=== PATIENT | female | born 1930 | race Caucasian/White ===

== ENCOUNTER 2017-12-16 18:52 | Inpatient (IN) | payer OTHER ==
[~2017-12-16] VITALS: Ht 167.6 cm; Wt 57.6 kg
[~2017-12-16 18:52] MED LIST: AMLO10TA PO; ASPI81EC98 PO; BENA1TAB23 PO; CHOL400T PO; LEVA0.6318 INH; PHO667 PO; PRAV40TA1 PO; VITE200 PO; [UNRECOGNIZED DRUG - CODE] OP; [UNRECOGNIZED DRUG - CODE] OP; [UNRECOGNIZED DRUG - CODE] PO
[2017-12-16 18:54] VITALS: BP 193/95
[2017-12-16] MEDS ORDERED: ATRMDI INH (19:02)
[2017-12-16] MEDS ORDERED: ZOLP5TAB1 PO (19:02)
[2017-12-16] MEDS ORDERED: ALBUTEROL SULFATE/IPRATROPIU 3 ML SOL IH ONE (19:30)
[2017-12-16] MEDS ORDERED: NACL 0.9% 1,000 ML IV ONE (19:35)
[2017-12-16] MEDS ORDERED: methylPREDNISolone SS 125 MG/2 ML VIAL IVP ONE (19:35)
[2017-12-16] MEDS ORDERED: MAG SULF 2000 MG/WATER PREMIX 50 ML IV ONE (19:35)
--- NOTE | 2017-12-16 20:00 | NUR ---
Pt came to ED via EMS for SOB and hypertension. Pt is A&Ox4. Pt denies cough or difficulty breathing. Respirations are normal with not adventitious breath sounds in all lobes. Pt states difficulty getting air unto her lungs but respiratory rate and effort are within normal limits. Pt in bed in poc with HOB elevated. ER MD aware. Continue to monitor.
[2017-12-16 20:15] LABS: BASOPHILS # (AUTO) 0.1 K/uL (0.00-0.22); BASOPHILS % (AUTO) 1.6 % (0.0-2.0); EOSINOPHILS % (AUTO) 0.6 % (0.0-4.0); HEMOGLOBIN 12.9 g/dL (12.0-16.0); LYMPHOCYTES # (AUTO) 1.3 K/uL (2.5-16.5); LYMPHOCYTES % (AUTO) 17.1 % (20.5-51.1); MEAN CORPUSCULAR HEMOGLOBIN 29 pg (27-31); MEAN CORPUSCULAR HGB CONC 34 g/dL (33-37); MEAN CORPUSCULAR VOLUME 87 fL (80-94); MONOCYTES # (AUTO) 0.6 K/uL (0.8-1.0); MONOCYTES % (AUTO) 7.7 % (1.7-9.3); NEUTROPHILS # (AUTO) 5.8 K/uL (1.8-7.7); PLATELET COUNT (AUTO) 245 K/uL (140-450); RED CELL DISTRIBUTION WIDTH 12.6 % (11.6-13.7); WHITE BLOOD COUNT (AUTO) 7.8 K/uL (4.8-10.8)
[2017-12-16] MEDS ORDERED: PIPERACILLIN/TAZOBACTAM 3.375 GM in DEXTROSE 5% 50 ML IV ONE (20:25)
[2017-12-16] MEDS ORDERED: PIPERACILLIN/TAZOBACTAM 3.375 GM VIAL IV ONE (20:28)
[2017-12-16 20:39] LABS: ANION GAP 12.9 (8-16); CARBON DIOXIDE 27.9 mmol/L (21-32); CHLORIDE 92 mmol/L (98-107); CREATININE 0.5 mg/dL (0.6-1.3); GLUCOSE 87 mg/dL (74-106); POTASSIUM 3.8 mmol/L (3.5-5.1); SODIUM SERUM 129 mmol/L (136-145); UREA NITROGEN, BLOOD 8 mg/dL (7-18)
[2017-12-16 20:43] LABS: ALBUMIN 3.5 g/dL (3.4-5.0); ASPARTATE AMINOTRANSFERASE 24 U/L (15-37); TOTAL BILIRUBIN 0.4 mg/dL (0.0-1.0)
[2017-12-16] MEDS ORDERED: LOSARTAN 50 MG TAB PO SCH (22:15)
[2017-12-16] MEDS ORDERED: amLODIPine 5 MG TAB PO SCH (22:15)
[2017-12-16 22:46] LABS: PROTHROMBIN TIME 9.4 secs (10.8-13.4)
--- NOTE | 2017-12-16 23:05 | NUR ---
Pt taken to floor room 124B from ED via mike with Abdoulaye RN and Jonelle EMT at 2305. Pt on monitor. VSS
[2017-12-16 23:10] VITALS: BP 179/85
--- NOTE | 2017-12-16 23:10 | NUR ---
RECEIVED PT FROM THE ER, PT IN STABLE CONDITION. BEDSIDE REPORT GIVEN BY ER NURSE LIBAN. PT IS AAOX4, ON 3L O2 VIA NC. PT HAS IV TO R FA 20 G AND L FA 20G, BOTH PATENT AND INTACT, SALINE LOCK. SKIN INTACT, RESPIRATIONS EVEN AND UNLABORED. DIMINISHED BREATH SOUNDS BILATERALLY. SKIN IS WARM AND DRY TO TOUCH, COLOR WNL. RE NURSE LIBAN REPORTS THAT PTS LAST BP WAS 214/91 AND NOTHING WAS GIVEN IN ER. WILL RECHECK BP AND NOTIFY DR. VEGA. INITIAL ASSESSMENT COMPLETED, PLAN OF CARE DISCUSSED WITH PT AT THE BEDSIDE, ALL SAFETY PRECAUTIONS MET, CALL LIGHT WITHIN REACH, BOARD UPDATED. WILL CONTINUE TO MONITOR
--- NOTE | 2017-12-16 23:11 | NUR ---
Report given to Ronald WAN at 2311 and care transfered. Pt VSS and ambulatory upon transfer.
--- NOTE | 2017-12-16 23:43 | NUR ---
NORVASC AND LOSARTAN ADMINISTERED PER ORDERS FOR HIGH BP
--- NOTE | 2017-12-16 23:50 | NUR ---
CLARIFIED WITH DR. WOO IF HE WANTS TO ORDER FLUIDS, HE DOES NOT WANT FLUIDS AND TO KEEP SALINE LOCK FOR NOW
[2017-12-17] VITALS: BP 165/79
--- NOTE | 2017-12-17 | NUR ---
SPOKE TO DR. LOCK IN REGARDS TO DIET, FLUIDS, HOME MEDS, ECHO, EKG, AND CURRENT B/P. DR. LOCK STATED THAT SHE WILL BE ON A REGULAR DIET, NO FLUIDS SALINE LOCK, HE WILL DISCUSS HOME MEDS WITH PT TOMORROW WHEN HE COMES, HE WANTS ECHO ORDERED AND EKG ORDERED Q8. NO OTHER MEDICATION TO BE ORDERED AT THIS TIME PER DR. LOCK. STATED BP WHICH IS 179/77 PULSE 85, STATED I GAVE BP MEDICATIONS THAT WERE ORDERED FOR TONIGHT, HE STATED HE DOES NOT WANT ANY OTHER BP MEDS ORDERED AT THIS TIME
[2017-12-17 04:00] VITALS: BP 187/81
--- NOTE | 2017-12-17 04:27 | NUR ---
REPORTED PTS B/P OF TO DR. WOO. HE ASKED IF PT COMPLAINED OF ANY PAIN AND PT DENIES ANY PAIN AT THIS TIME. HE SAID IT IS OKAY AND NO NEW ORDERS NEED TO BE PUT IN PLACE. HE WILL BE IN TO SEE PT
[2017-12-17 04:50] LABS: CREATINE KINASE MB 2.9 ng/mL (0-3.6)
[2017-12-17 06:21] LABS: BASOPHILS % (AUTO) 0.8 % (0.0-2.0); EOSINOPHILS % (AUTO) 0.9 % (0.0-4.0); HEMATOCRIT 36.7 % (36-48); HEMOGLOBIN 12.3 g/dL (12.0-16.0); LYMPHOCYTES # (AUTO) 0.4 K/uL (2.5-16.5); LYMPHOCYTES % (AUTO) 6.5 % (20.5-51.1); MEAN CORPUSCULAR HEMOGLOBIN 29 pg (27-31); MEAN CORPUSCULAR HGB CONC 34 g/dL (33-37); MEAN CORPUSCULAR VOLUME 86 fL (80-94); MONOCYTES % (AUTO) 0.6 % (1.7-9.3); NEUTROPHILS % (AUTO) 91.2 % (42.2-75.2); PLATELET COUNT (AUTO) 220 K/uL (140-450); RED BLOOD CELL COUNT(AUTO) 4.27 MIL/uL (4.20-5.40); RED CELL DISTRIBUTION WIDTH 12.5 % (11.6-13.7); WHITE BLOOD COUNT (AUTO) 5.4 K/uL (4.8-10.8)
--- NOTE | 2017-12-17 07:03 | NUR ---
SHOWED PTS HOME MEDICATIONS TO DR. WOO, MEDICATIONS PUT IN YELLOW BIN WITH PT LABEL
--- NOTE | 2017-12-17 07:09 | NUR ---
DR. WOO IN TO SEE PT
[2017-12-17] MEDS ORDERED: IPRATROPIUM HFA MDI 17 MCG/ACTUATION 12.9 GM INH SCH (07:15)
--- NOTE | 2017-12-17 07:15 | NUR ---
REPORT GIVEN TO DAY NURSE FOR CONTINUITY OF CARE, PT IN STABLE CONDITION. NO S/S OF DISTRESS NOTED. BILATERAL IV PATENT AND INTACT
[2017-12-17] MEDS ORDERED: ALBUTEROL SULFATE/IPRATROPIU 3 ML SOL IH PRN (07:30)
--- NOTE | 2017-12-17 07:30 | NUR ---
RECEIVED PT AAOX4. NO SOB NOTED, ON 02 AT 2LPM VIA NC WITH 93% O2 SATS. WITH IV ON RT AND LT HAND PATENT AND INTACT. CHEST CLEAR. ABDOMEN SOFT, BOWEL SOUNDS PRESENT. NO EDEMA NOTED. INSTRUCTED PT TO CALL FOR ASSISTANCE, CALL LIGHT WITHIN REACH. PT VERBALIZED UNDERSTANDING.
[2017-12-17 08:00] VITALS: BP 161/87
[2017-12-17] MEDS ORDERED: BENAZEPRIL PO SCH (09:00)
[2017-12-17] MEDS ORDERED: [UNRECOGNIZED DRUG - OTHER] PO SCH (09:00)
[2017-12-17] MEDS ORDERED: NON-FORMULARY ITEM (Pravastatin Sodium* (Pravachol*) 40 MG) PO SCH (09:00)
[2017-12-17] MEDS ORDERED: HYDROCHLOROTHIAZIDE PO SCH (09:00)
[2017-12-17] MEDS: amLODIPine 5 MG TAB PO SCH ×2 (09:44→20:48)
[2017-12-17] MEDS: BENAZEPRIL 20 MG TAB PO SCH (09:45)
[2017-12-17] MEDS: ECOTRIN 81 MG TABEC PO SCH (09:45)
[2017-12-17] MEDS: HYDROCHLOROTHIAZIDE 25 MG TAB PO SCH (09:46)
--- NOTE | 2017-12-17 09:51 | NUR ---
PATIENT HAS BEEN SCREENED AND CATEGORIZED MODERATE NUTRITION RISK. PATIENT WILL BE SEEN WITHIN 3-5 DAYS OF ADMISSION. 12/18/17-12/20/[address]
--- NOTE | 2017-12-17 11:43 | NUR ---
SPOKE WITH ERAN FROM [facility] [employer] [facility]. SHE SAID THEY ARE AT FULL RISK AND TO SEND TO REVIEW TO HER. FAXED INITIAL REVIEW TO [facility] [phone] PHONE ERAN [phone].
[2017-12-17 12:00] VITALS: BP 143/76
--- NOTE | 2017-12-17 13:00 | NUR ---
NATALIAODE PLACED AT THE BEDSIDE. PT VERBALIZED UNDERSTANDING.
[2017-12-17 15:07] LABS: CREATINE KINASE MB 3.3 ng/mL (0-3.6)
[2017-12-17 16:00] VITALS: BP 156/85
--- NOTE | 2017-12-17 16:55 | NUR ---
PT AWAKE, WATCHING TV. NO SOB NOTED. NO C/O PAIN AT THIS TIME.
--- NOTE | 2017-12-17 19:00 | NUR ---
PT RESTING. NO SOB NOTED. NO COMPLAINTS MADE. WILL ENDORSE TO NEXT SHIFT NURSE FOR CONTINUITY OF CARE.
--- NOTE | 2017-12-17 19:30 | NUR ---
RECEIVED PT FROM DAY NURSE PT IN STABLE CONDITION. PT IS AAOX4, ON 3L O2 VIA NC. PT HAS IV TO R FA 20 G AND L FA 20G, BOTH PATENT AND INTACT, SALINE LOCK. SKIN INTACT, RESPIRATIONS EVEN AND UNLABORED. DIMINISHED BREATH SOUNDS BILATERALLY. SKIN IS WARM AND DRY TO TOUCH, COLOR WNL. RE NURSE LIBAN REPORTS THAT PTS LAST BP WAS 214/91 AND NOTHING WAS GIVEN IN ER. WILL RECHECK BP AND NOTIFY DR. VEGA. INITIAL ASSESSMENT COMPLETED, PLAN OF CARE DISCUSSED WITH PT AT THE BEDSIDE, ALL SAFETY PRECAUTIONS MET, CALL LIGHT WITHIN REACH, BOARD UPDATED. WILL CONTINUE TO MONITOR
[2017-12-17 20:00] VITALS: BP 137/72
[2017-12-17] MEDS ORDERED: ZOLPIDEM 5 MG TAB PO PRN (21:00)
[2017-12-17] MEDS ORDERED: SIMVASTATIN 20 MG TAB PO SCH (21:00)
[2017-12-17] MEDS ORDERED: CARVEDILOL 3.125 MG TAB PO SCH (21:00)
[2017-12-18] VITALS: BP 155/84
[2017-12-18 04:00] VITALS: BP 156/85
--- NOTE | 2017-12-18 07:27 | NUR ---
REPORT GIVEN TO DAY NURSE FOR CONTINUITY OF CARE, PT IN STABLE CONDITION. NO S/S OF DISTRESS. IV PATENT AND INTACT, NO REDNESS OR SWELLING
--- NOTE | 2017-12-18 07:30 | NUR ---
RECEIVED PT AAOX4. NO SOB NOTED, NO C/O PAIN AT THIS TIME. WITH IV ON RT AND LT HAND PATENT AND INTACT. CHEST CLEAR. ABDOMEN SOFT, BOWEL SOUNDS PRESENT. NO EDEMA NOTED. INSTRUCTED PT TO CALL FOR ASSISTANCE, CALL LIGHT WITHIN REACH. PT VERBALIZED UNDERSTANDING.
[2017-12-18 08:00] VITALS: BP 168/71
--- NOTE | 2017-12-18 09:05 | NUR ---
CALLED DR. MCGEE'S OFFICE NUMBER AND SPOKE WITH HIS GALLERY MANAGER, MESSAGE LEFT REGARDING PT'S D/C ORDERS BY DR. WOO. CELL BIOLOGY SCIENTIST TOLD ME DR. MCGEE IS WITH A PT AND WILL RETURN MY CALL SOON HIS IS AVAILABLE. AWAITING FOR CALL BACK.
[2017-12-18] MEDS: HYDROCHLOROTHIAZIDE 25 MG TAB PO SCH (09:22)
[2017-12-18] MEDS: BENAZEPRIL 20 MG TAB PO SCH (09:22)
[2017-12-18] MEDS: amLODIPine 5 MG TAB PO SCH (09:22)
[2017-12-18] MEDS: ECOTRIN 81 MG TABEC PO SCH (09:23)
[2017-12-18 10:15] VITALS: BP 153/55
[2017-12-18] MEDS ORDERED: AMLO10TA PO (10:33)
--- NOTE | 2017-12-18 11:00 | NUR ---
DISCHARGE INSTRUCTIONS GIVEN TO PT WHICH VERBALIZED FULL UNDERSTANDING OF THE INSTRUCTIONS GIVEN AND THE NEED TO FOLLOW UP WITH DR. RUBEN WOO WITHIN 7 DAYS. PT IS AWARE THAT DR. WOO ALREADY SENT HIS PRESCRIPTIONS TO PT'S PREFERRED PHARMACY AND IS READY FOR DOVETAILER. ARM BANDS AND IV REMOVED, CANNULA TIP INTACT.
--- NOTE | 2017-12-18 11:20 | NUR ---
PT WHEELED TO THE PARKING LOT IN STABLE CONDITION. NO SOB NOTED. NO C/O PAIN AT THIS TIME. PT IS D/C HOME WITH .
--- NOTE | 2017-12-18 12:36 | NUR ---
CALLED ERAN FROM [employer] [facility] AND GAVE ORAL [id number]. INFORMED HER PATIENT IS DISCHARGED TODAY. FAXED DISCHARGE SUMMARY AND MEDICATION REC. LIST TO HER AT [phone] PHONE [phone]
== END 2017-12-18 11:20 | disposition home or self-care (01) | DRG 305 ==
LOC: MED 18:52 → MTU 22:26
PROVIDERS: ADMIT Family Medicine; ATTEND Family Medicine
DX: I16.0 Hypertensive urgency (principal); E87.1 Hypo-osmolality and hyponatremia; J44.9 Chronic obstructive pulmonary disease, unspecified; I10 Essential (primary) hypertension; I08.0 Rheumatic disorders of both mitral and aortic valves; I49.1 Atrial premature depolarization; Z87.891 Personal history of nicotine dependence
CPT/HCPCS: 36415; 71045; 80053; 82550; 82553; 83605; 83880; 84484; 85025; 85610; 85730; 87040; 87081; 93005; 94640; 96365; 96368; 96375; 99285; J2543; J2930; J3475; J7030; J7620; Q0092

== ENCOUNTER 2018-06-03 18:56 | Inpatient (IN) | payer OTHER ==
[~2018-06-03] VITALS: Ht 152.4 cm; Wt 49.0 kg
[~2018-06-03 18:56] MED LIST changes: +ATRMDI INH; -CHOL400T PO; -LEVA0.6318 INH; -PHO667 PO; -VITE200 PO; +ZOLP5TAB1 PO; -[UNRECOGNIZED DRUG - CODE] OP; -[UNRECOGNIZED DRUG - CODE] OP; -[UNRECOGNIZED DRUG - CODE] PO
[2018-06-03 19:00] VITALS: BP 178/90
--- NOTE | 2018-06-03 19:05 | NUR ---
TO BED # 4 VIA [facility]
--- NOTE | 2018-06-03 19:22 | NUR ---
Dr. Martini evaluating patient at bedside.
--- NOTE | 2018-06-03 19:23 | NUR ---
87/F BIBA FOR ALOC. PER EMS, PT ELOPED FROM HOSPITAL TODAY, PD WAS CALLED FOR MISSING PERSON, PT CALLED 911 FOR HER AT HOME, PD WAS ON SCENE AND FOUND PT THE MISSING PERSON. PER PT'S NEIGHBOR, PT IS NOT IN HER BASELINE LOC, PT WAS SEEN "WALKING AROUND IN THE SUN BY HERSELF." PT'S NEIGHBOR AT BEDSIDE. PT AOX3-4, CONFUSED AND FORGETFUL AT TIMES. PT AGITATED AND NOT COMPLYING WITH MEDICAL TREATMENTS, ATTEMPTING TO GET OFF RESTRAINTS AND THREATENING TO LEAVE. PT COMES IN WITH BEHAVIORAL RESTRAINTS PLACED BY EMS, PER DR. LAMBERT, BEHAVIORAL RESTRAINTS TO BE CONTINUED. SKIN INTACT, +CMS. HX HTN. LUNG SOUNDS CLEAR BL. ER MD AT BEDSIDE TO EVALUATE PT.
[2018-06-03] MEDS ORDERED: NACL 0.9% 1,000 ML IV ONE (19:30)
[2018-06-03] MEDS ORDERED: HALOPERIDOL IM 5 MG/ML VIAL ONE (19:30)
[2018-06-03] MEDS ORDERED: HALOPERIDOL IM 5 MG/ML VIAL IM ONE (19:30)
--- NOTE | 2018-06-03 20:19 | NUR ---
PT RETURN FROM CT
--- NOTE | 2018-06-03 20:30 | NUR ---
PT REMOVED FROM BEHAVIORAL RESTRAINTS, PT APPEARS CAPABLE CONTROLLING BEHAVIOR, PT COOPERATIVE AT THIS TIME. SKIN INTACT, +CMS. PT PROVIDED WITH SANDWICH AND SNACKS. ALL NEEDS MET AT THIS TIME.
[2018-06-03] MEDS ORDERED: LORazepam 0.5 MG TAB PO ONE (20:35)
--- NOTE | 2018-06-03 20:44 | NUR ---
PT AGREED TO HAVE STRAIGHT CATH, SAMPLE COLLECTED AND PLACED ON COLLECTION BOX
[2018-06-03 20:47] LABS: WHITE BLOOD COUNT (AUTO) 6.7 K/uL (4.8-10.8)
[2018-06-03 20:48] LABS: BASOPHILS % (AUTO) 1.7 % (0.0-2.0); EOSINOPHILS % (AUTO) 0.1 % (0.0-4.0); HEMOGLOBIN 12.8 g/dL (12.0-16.0); LYMPHOCYTES # (AUTO) 0.6 K/uL (2.5-16.5); MEAN CORPUSCULAR HEMOGLOBIN 28 pg (27-31); MEAN CORPUSCULAR HGB CONC 33 g/dL (33-37); MEAN CORPUSCULAR VOLUME 85.6 fL (80-94); MONOCYTES % (AUTO) 5.6 % (1.7-9.3); NEUTROPHILS # (AUTO) 5.6 K/uL (1.8-7.7); NEUTROPHILS % (AUTO) 83.6 % (42.2-75.2); PLATELET COUNT (AUTO) 257 K/uL (140-450); RED BLOOD CELL COUNT(AUTO) 4.55 MIL/uL (4.20-5.40); RED CELL DISTRIBUTION WIDTH 13.8 % (11.6-13.7)
[2018-06-03 20:49] LABS: BASOPHILS # (AUTO) 0.1 K/uL (0.00-0.22); MONOCYTES # (AUTO) 0.4 K/uL (0.8-1.0)
[2018-06-03 20:52] LABS: PROTHROMBIN TIME 13.4 secs (10.8-13.4)
[2018-06-03 21:12] LABS: POTASSIUM 3.5 mmol/L (3.5-5.1); SODIUM SERUM 129 mmol/L (136-145)
[2018-06-03 21:13] LABS: ANION GAP 17.4 (8-16); ASPARTATE AMINOTRANSFERASE 61 U/L (15-37); CARBON DIOXIDE 22.1 mmol/L (21-32); CHLORIDE 93 mmol/L (98-107); CREATININE 0.7 mg/dL (0.6-1.3); GLUCOSE 90 mg/dL (74-106); TOTAL BILIRUBIN 0.7 mg/dL (0.0-1.0); UREA NITROGEN, BLOOD 13 mg/dL (7-18)
[2018-06-03 21:14] LABS: ACETAMINOPHEN < 0.5 ug/ml (10-30); ALBUMIN 3.8 g/dL (3.4-5.0); SALICYLATE < 2.8 mg/dL (2.8-20.0)
[2018-06-03 21:40] LABS: APPEARANCE,URINE CLEAR (CLEAR); BILIRUBIN,URINE 2+ (NEGATIVE); BLOOD, URINE TRACE-L (NEGATIVE); COLOR,URINE YELLOW (YELLOW); LEUKOCYTE ESTERASE ,URINE NEGATIVE (NEGATIVE); NITRITE, URINE NEGATIVE (NEGATIVE); PH,URINE 5.5 (5.0-9.0); UGLUCOSE NEGATIVE (NEGATIVE)
[2018-06-03 21:43] LABS: BENZODIAZEPINE, URINE NEG. ng/mL (NEG <=200); CANNABINOID, URINE NEG. ng/mL (NEG <=50); COCAINE, URINE NEG. ng/mL (NEG <=300); OPIATE, URINE NEG. ng/mL (NEG <=2000); PHENCYCLIDINE SCREEN,URINE NEG. ng/mL (NEG <=25)
[2018-06-03 21:50] LABS: BARBITURATE, URINE NEG ng/ml (NEG <=200)
[2018-06-03 21:55] LABS: RBC,URINE 0-5 (RARE) /HPF (0-5); WBC,URINE 0-5 (RARE) /HPF (0-5)
--- NOTE | 2018-06-03 22:26 | NUR ---
PT SLEEPING COMFORTABLY IN BED, RR EVEN AND UNLABORED, SPO2 88% ON RA, PT PLACED ON O2 2L NC, RR 16. ALL NEEDS MET AT THIS TIME.
[2018-06-03] MEDS ORDERED: cefTRIAXone 1,000 MG VIAL ONE (22:34)
--- NOTE | 2018-06-03 23:17 | NUR ---
PER MT, DELAY IN ADMITTING PT TO FLOOR AT THIS TIME FOR BED AVAILABILITY
--- NOTE | 2018-06-03 23:48 | NUR ---
PT ARRIVED AT UNIT VIA GURNEY, PT SEDATED, V/S TAKEN, WNL, REPORT RECEIVED FROM ER NURSE JASMEET RN, PT STABLE, IV TO L HAND 20G, PATENT, INTACT, INFUSING WELL, PT ON 2LPM O2 VIA NC, NO SOB NOTED, MRSA SWAB TAKEN, INITIAL ASSESSMENT DONE, ALL SAFETY PRECAUTION MET, WILL CONTINUE TO MONITOR.
--- NOTE | 2018-06-03 23:50 | NUR ---
Patient will be admitted to care of DR. WOO. Admited to TELE. Will go to room 107B. Belongings list completed. Report to SOCO PANG AT BEDSIDE.
[2018-06-04] VITALS: BP 135/58
--- NOTE | 2018-06-04 | NUR ---
PT WOUND NOT ANSWER QUESTIONS, PT IN STABLE CONDITION, SLEEPING, NO DISTRESS NOTED, UNABLE TO ASSESS PT FOR ADMISSION. Addendum: 06/04/18 at 0746 by Carolin Samson RN *WOULD NOT ANSWER
[2018-06-04] MEDS: NACL 0.9% 1,000 ML IV SCH ×2 (01:45→14:15)
--- NOTE | 2018-06-04 01:48 | NUR ---
CALLED DR. WOO REGARDING PT ORDERS, STATED TO ORDER IVF NS @ 80ML/HR, MECHANICAL SOFT DIET, ROCEPHIN 1G IV DAILY, CBC AND BMP FOR MORNING 0500 AM, ATIVAN 0.5MG PO Q6H PRN AGITATION. WILL PUT IN ORDER AND WILL CONTINUE WITH ORDERS.
--- NOTE | 2018-06-04 03:44 | NUR ---
PT SLEEPING, NO DISTRESS NOTED, PT TOOK OF NC, PO2 93%, PT STABLE ON ROOM AIR, NO SOB NOTED, V/S TAKEN, WNL, CALL LIGHT WITHIN REACH, WILL CONTINUE TO MONITOR.
[2018-06-04 04:00] VITALS: BP 127/57
--- NOTE | 2018-06-04 05:10 | NUR ---
PT SLEEPING, NO DISTRESS NOTED, CALL LIGHT WITHIN REACH, WILL CONTINUE TO MONITOR.
--- NOTE | 2018-06-04 06:10 | NUR ---
PT SON ISSA CALLED REGARDING PT CONDITION.
--- NOTE | 2018-06-04 07:30 | NUR ---
ENDORSED PT TO DAY SHIFT NURSE JOSEPH WAN, PT IN STABLE CONDITION, NO DISTRESS NOTED, CALL LIGHT WITHIN REACH.
--- NOTE | 2018-06-04 07:35 | NUR ---
RECEIVED REPORT FROM LABORATORY CUREMAN NURSE, PT IS SLEEPING IN BED AT THIS TIME, PT HAS IV ON HER LEFT HAND, PATENT, INTACT, FLUSHING WELL, SKIN IS INTACT, NO S/S OF RESPIRATORY DISTRESS OR DISCOMFORT NOTED, PT IS AAOX2, AMBULATES WITH ASSIST, DISCUSSED PLAN OF CARE, PT VERBALIZED UNDERSTANDING. Addendum: 06/04/18 at 1829 by Cristina Coulter RN SAFETY/FALL PRECAUTIONS ARE IN PLACE, CALL LIGHT IS WITHIN REACH, WILL CONTINUE TO MONITOR.
[2018-06-04 08:00] VITALS: BP 123/60
[2018-06-04 08:50] LABS: BASOPHILS % (AUTO) 1.6 % (0.0-2.0); EOSINOPHILS % (AUTO) 0.8 % (0.0-4.0); HEMATOCRIT 34.7 % (36-48); HEMOGLOBIN 11.2 g/dL (12.0-16.0); LYMPHOCYTES % (AUTO) 19.9 % (20.5-51.1); MEAN CORPUSCULAR HEMOGLOBIN 28 pg (27-31); MEAN CORPUSCULAR HGB CONC 32 g/dL (33-37); MEAN CORPUSCULAR VOLUME 87.3 fL (80-94); MONOCYTES % (AUTO) 8.2 % (1.7-9.3); NEUTROPHILS % (AUTO) 69.5 % (42.2-75.2); PLATELET COUNT (AUTO) 215 K/uL (140-450); RED BLOOD CELL COUNT(AUTO) 3.98 MIL/uL (4.20-5.40); RED CELL DISTRIBUTION WIDTH 13.9 % (11.6-13.7); WHITE BLOOD COUNT (AUTO) 5.7 K/uL (4.8-10.8)
--- NOTE | 2018-06-04 08:50 | NUR ---
I RECEIVED A PHONE CALL FROM PATIENT'S SON, PATTI. I LET HIM PATIENT WAS SLEEPING AT THIS TIME. PATTI LEFT HIS NUMBER IN CASE WE COULD NOT REACH THE PATIENT'S .
--- NOTE | 2018-06-04 09:00 | NUR ---
ASSISTED PT TO RESTROOM AND BACK INTO BED, ALL NEEDS MET AT THIS TIME, CALL LIGHT WITHIN REACH.
[2018-06-04 09:52] LABS: ANION GAP 14.5 (8-16); CARBON DIOXIDE 23.7 mmol/L (21-32); CHLORIDE 99 mmol/L (98-107); CREATININE 0.5 mg/dL (0.6-1.3); POTASSIUM 3.2 mmol/L (3.5-5.1); SODIUM SERUM 134 mmol/L (136-145); UREA NITROGEN, BLOOD 12 mg/dL (7-18)
--- NOTE | 2018-06-04 10:15 | NUR ---
PT IS IN ROOM RESTLESS, WALKING IN AND OUT OF RESTROOM, REORIENTED PT INTO BED. WILL MEDICATE FOR AGITATION AT THIS TIME.
[2018-06-04 10:18] LABS: GLUCOSE 43 mg/dL (74-106)
[2018-06-04] MEDS: LORazepam 0.5 MG TAB PO PRN (10:28)
--- NOTE | 2018-06-04 10:32 | NUR ---
PATIENT HAS BEEN SCREENED AND CATEGORIZED MODERATE NUTRITION RISK. PATIENT WILL BE SEEN WITHIN 3-5 DAYS OF ADMISSION. 06/06/18 06/08/[address]
--- NOTE | 2018-06-04 11:58 | NUR ---
CALLED [facility] AND SPOKE WITH MICHELINE. HE SAID REVIEWS GO TO [facility], THEY ARE DELEGATED. CALLED [facility] AND SPOKE WITH ERAN [phone]. FAXED INITIAL REVIEW TO [phone]
[2018-06-04 12:00] VITALS: BP 145/59
--- NOTE | 2018-06-04 12:45 | NUR ---
PT SLEEPING IN BED, NO S/S OF RESPIRATORY DISTRESS OR DISCOMFORT NOTED, CALL LIGHT WITHIN REACH.
--- NOTE | 2018-06-04 13:30 | NUR ---
CALLED DR. WOO TO LET HIM KNOW THE RESULTS OF THE AMMONIA LEVEL (38), DR. WOO SAID IT WAS "OK." I ALSO LET HIM KNOW HER K LEVEL WAS 3.2. PER DR. WOO GIVE K DUR PO, 20 MEQ ONCE AND DECREASE HER FLUIDS TO 50ML/HR.
[2018-06-04 13:48] LABS: ALBUMIN 2.9 g/dL (3.4-5.0); BILIRUBIN,DIRECT 0.1 mg/dL (0.0-0.3); TOTAL BILIRUBIN 0.4 mg/dL (0.0-1.0)
[2018-06-04] MEDS ORDERED: POTASSIUM CHLORIDE 10 MEQ TABER PO SCH (15:30)
--- NOTE | 2018-06-04 15:35 | NUR ---
DUE MEDICATION GIVEN, ASSISTED PATIENT TO RESTROOM AND BACK INTO BED. BED ALARM, BED IN LOW POSITION AND CALL LIGHT WITHIN REACH.
[2018-06-04 16:00] VITALS: BP 137/68
--- NOTE | 2018-06-04 17:45 | NUR ---
ASSISTED PATIENT TO RESTROOM AND BACK INTO BED, CALL LIGHT IS WITHIN REACH.
--- NOTE | 2018-06-04 19:15 | NUR ---
ENDORSED PT TO SALES MARKETING MANAGER NURSE FOR CONTINUITY OF CARE. PT STABLE AT THIS TIME.
--- NOTE | 2018-06-04 19:16 | NUR ---
RECEIVED BEDSIDE REPORT FRO DAY SHIFT NURSE JOSEPH RN, PT RESTING, NO DISTRESS NOTED, IV TO L HAND 20G, PT STATED THAT IS PAINFULL, NOTED BLOOD LEAKING FROM IV SITE, WILL PUT IN NEW IV, PT ON ROOM AIR, NO SOB, PT STATED HAVING NO PAIN AT THIS MOMENT, PT CALM AND COOPERATIVE, CALL LIGHT WITHIN REACH, INITIAL ASSESSMENT DONE, ALL SAFETY PRECAUTION MET, WILL CONTINUE TO MONITOR.
[2018-06-04 20:00] VITALS: BP 191/84
--- NOTE | 2018-06-04 20:04 | NUR ---
CHECKED ON PT BP 191/84 HR 81 PO2 92% TEMP 97.1, PT STATED HAVING NO HEADACHE, CALLED DR. WOO REGARDING PT BP, STATED TO ORDER AMLODIPIN 10MG PO QD AND ONE DOSE FOR NOW, ALSO TO HEPLOCK THE PT. PUT IN ORDERS AND WILL FOLLOW UP WITH ORDERS. Addendum: 06/04/18 at 2013 by Carolin Samson RN PT STATED FEELING FINE, NO DISTRESS NOTED, PT SITTING ON BEDSIDE OF BED, CALL LIGHT WITHIN REACH
--- NOTE | 2018-06-04 20:27 | NUR ---
DUE MEDICATION ADMINISTERED, PT TOLERATED WELL, NO DISTRESS NOTED, PT RESTING IN BED, CALL LIGHT WITHIN REACH, WILL CONTINUE TO MONITOR.
[2018-06-04] MEDS ORDERED: amLODIPine 5 MG TAB PO SCH (20:30)
--- NOTE | 2018-06-04 22:30 | NUR ---
RECHECKED PT BP 155/66 HR 78, PT RESTING, NO DISTRESS NOTED, CALL LIGHT WITHIN REACH, WILL CONTINUE TO MONITOR.
--- NOTE | 2018-06-04 23:10 | NUR ---
PT CONFUSED, KEEPS TAKING TELE MONITOR OFF, ORIENT PT IMPORTANCE OF TELE MONITORING, PT STATED UNDERSTANDING, NO DISTRESS NOTED, CALL LIGHT WITHIN REACH, WILL CONTINUE TO MONITOR.
[2018-06-05] VITALS: BP 139/63
--- NOTE | 2018-06-05 01:47 | NUR ---
CHECKED ON PT, PT SLEEPING, NO DISTRESS NOTED, CALL LIGHT WITHIN REACH, WILL CONTINUE TO MONITOR.
--- NOTE | 2018-06-05 03:26 | NUR ---
PT WOKE UP, WENT TO RESTROOM AND BACK TO BED WITH ASSISTANCE, PT TOLERATED WELL, NO DISTRESS NOTED, CALL LIGHT WITHIN REACH, WILL CONTINUE TO MONITOR.
[2018-06-05 04:00] VITALS: BP 145/51
--- NOTE | 2018-06-05 04:51 | NUR ---
PT GOT UP AND WENT TO RESTROOM, AND BACK TO BED, NO DISTRESS NOTED, CALL LIGHT WITHIN REACH, WILL CONTINUE TO MONITOR.
--- NOTE | 2018-06-05 05:43 | NUR ---
SCD NOT APPLIED TO PT, B/C PT WALKS FREQUENTLY TO THE RESTROOM AND DOES NOT WANT TO HAVE SCD ON.
--- NOTE | 2018-06-05 07:30 | NUR ---
ENDORSED PT TO DAY SHIFT NURSE KY RN, PT STABLE, NO DISTRESS NOTED, CALL LIGHT WITHIN REACH
--- NOTE | 2018-06-05 07:32 | NUR ---
RECEIVED BEDSIDE REPORT FROM WELL CONTROL INSTRUCTOR NURSE AT BEDSIDE FOR CONTINUITY OF CARE, PT RESTING, NO DISTRESS NOTED, IV TO L FOREARM 20G, PATENT, ASYMPTOMATIC, AND INTACT, SALINE LOCK, PT ON ROOM AIR, NO SOB, PT STATED HAVING NO PAIN AT THIS MOMENT, PT CALM AND COOPERATIVE, SAFETY PRECAUTION IN PLACE, CALL LIGHT WITHIN REACH, INITIAL ASSESSMENT DONE, WILL CONTINUE TO MONITOR PATIENT.
[2018-06-05 07:50] LABS: ANION GAP 14.3 (8-16); CHLORIDE 98 mmol/L (98-107); CREATININE 0.5 mg/dL (0.6-1.3); GLUCOSE 52 mg/dL (74-106); POTASSIUM 3.3 mmol/L (3.5-5.1); SODIUM SERUM 135 mmol/L (136-145); UREA NITROGEN, BLOOD 5 mg/dL (7-18)
[2018-06-05 08:00] VITALS: BP 161/73
--- NOTE | 2018-06-05 08:05 | NUR ---
NXTM CALLED ABOUT DR. WOO'S ABDOMEN US ORDER. STATED PATIENT ALREADY EATING BREAKFAST. TECH STATED THAT WILL DO THE US HOPEFULLY BY [phone] SO PATIENT CAN EAT LUNCH. PATIENT NOW NPO STATUS FOR THE TIME BEING. INFORMED PATIENT, SHE VERBALIZED UNDERSTANDING. WILL CONTINUE TO MONITOR PATIENT.
--- NOTE | 2018-06-05 08:12 | NUR ---
PATIENT'S SON PATTI CALLED. UPDATED HIM ON PATIENT'S STATUS AND HOW SHE IS DOING TODAY. HE STATES THAT HE IS WORRIED ABOUT HER AND DOES NOT WANT HER TO BE DISCHARGED BECAUSE SHE WANTS TO GIVE AWAY HER MONEY AND HOUSE. RN VERBALIZED UNDERSTANDING. WILL KEEP HIM UPDATED. ALSO TRANSFERRED HIM TO THE ROOM PHONE SO PATIENT COULD SPEAK WITH HIM.
[2018-06-05] MEDS: BENAZEPRIL 10 MG TAB PO SCH (08:37)
[2018-06-05] MEDS: amLODIPine 5 MG TAB PO SCH (08:37)
--- NOTE | 2018-06-05 08:37 | NUR ---
PATIENT SPEAKING TO HER RUBEN. ORDERED MEDICATIONS GIVEN. PATIENT TOLERATED THEM WELL. NO SIGNS OF DISTRESS OR SOB NOTED ON ROOM AIR. PATIENT DENIES PAIN. PATIENT INSISTS ON SPEAKING TO DR WOO AND WANTS TO BE RELEASED, SHE STATES THAT SHE IS FINE AND THAT HER NEEDS HER. SHE ALSO INSISTS THAT HER SON PATTI WILL BE COMING TO PICK HER UP. RN VERBALIZED UNDERSTANDING AND WILL FOLLOW UP.
--- NOTE | 2018-06-05 08:50 | NUR ---
PATIENT'S RUBEN CALLED. UPDATED HIM ON PATIENT'S STATUS AND HOW SHE IS DOING TODAY. HE STATES THAT HE IS WORRIED ABOUT HER AND DOES NOT WANT HER TO BE DISCHARGED BECAUSE SHE WANTS TO GIVE AWAY HER MONEY AND HOUSE. RN VERBALIZED UNDERSTANDING. WILL KEEP HIM UPDATED.
--- NOTE | 2018-06-05 08:52 | NUR ---
[id number] RECEIVED CALL FROM VIANCA NICKERSON APS ENGLISH AS A SECOND LANGUAGE TEACHER [phone]. PER VIANCA PT WAS SEEN IN THE ED BY AN APS ENGLISH AS A SECOND LANGUAGE TEACHER AND VIANCA WILL BE FOLLOWING UP. VIANCA REQUESTS THAT HE BE NOTIFIED OF PT'S DISCHARGE DISPOSITION AND PLANNED DATE FOR DISCHARGE.
--- NOTE | 2018-06-05 11:30 | NUR ---
PATIENT REFUSED TELE MONITOR. CALLED DR. WOO'S OFFICE AT [phone]. HE WAS BUSY SO WILL FOLLOW UP IN 15-20 MINUTES. INFORMED PATIENT OF THIS FACT. SHE HAS CHANGED INTO HER OWN CLOTHING. SHE ALSO KNOWS HOW TO TURN OFF THE BED ALARM. PATIENT REFUSES TO PUT THE HOSPITAL GOWN BACK ON. RN EDUCATED HER ON WHY IT IS NECESSARY BUT PATIENT VERBALIZED UNDERSTANDING BUT REFUSES.
[2018-06-05 12:00] VITALS: BP 148/66
--- NOTE | 2018-06-05 12:05 | NUR ---
CALLED DR. WOO AGAIN. HE VERBALIZED THAT HE SPOKE WITH PATIENT IN THE MORNING AND SHE AGREED TO PLAN OF CARE OF WAITING FOR UA RESULTS, WAITING FOR US OF ABDOMEN RESULTS, AND SPEAKING WITH DR. ORTIZ. NOW PATIENT INSISTS ON GOING HOME BECAUSE "MY IS ILL AND NEEDS ME". RN VERBALIZED UNDERSTANDING BUT REORIENTED PATIENT TO DR. WOO'S PLAN OF CARE, WHICH PATIENT AGREED TO. PATIENT STILL INSISTS ON GOING HOME BUT STATED SHE WILL WAIT UNTIL SHE SPEAKS WITH DR. WOO. RN CAME BACK AND PATIENT STATED THAT SHE DID SPEAK WITH DR. WOO AND HE WANTS HER TO STAY ONE MORE NIGHT. ATIVAN OFFERRED TO PATIENT, PATIENT REFUSED STATING THAT "I DON'T NEED IT, WHAT I NEED TO DO IS GET OUT". WILL CONTINUE TO MONITOR.
--- NOTE | 2018-06-05 12:25 | NUR ---
FAXED CONCURRENT REVIEW TO [facility] [phone] PHONE ERAN [phone]
--- NOTE | 2018-06-05 12:41 | NUR ---
PATIENT ATTEMPTED TO LEAVE ROOM. INFORMED PATIENT OF WHY SHE NEEDED TO STAY. RN DISCOVERED IV DISLODGED, NO LONGER PATENT, SO IV REMOVED, IV CATHETER INTACT, MINIMAL BLOOD NOTED. PATIENT STATED THAT SHE DID NOT WANT THE IV IN AND WILL NOT AGREE TO ANOTHER INSERT. WILL CONTINUE TO MONITOR PATIENT.
--- NOTE | 2018-06-05 13:28 | NUR ---
DR ORTIZ IN TO SEE THE PATIENT. WILL WAIT TO SEE HIS ASSESSMENT.
--- NOTE | 2018-06-05 13:45 | NUR ---
TAVERN OPERATOR IN TO DO US OF OF ABDOMEN. WILL AWAIT FOR RESULTS.
--- NOTE | 2018-06-05 13:55 | NUR ---
DR WOO CALLED. STATED THAT HE JUST SPOKE TO PATIENT'S BILL ABOUT SOMEONE CALLING TO SAY COME PICK PATIENT UP AND HE WAS WORRIED. DR. WOO STATED THAT PATIENT CANNOT GO AMA, IF SHE ATTEMPTS TO DO SO, HAVE THE ER MD COME AND ASSESS HER AND PUT HER ON A 5150 HOLD FOR GRAVELY DISABLED. RN VERBALIZED UNDERSTANDING.
--- NOTE | 2018-06-05 14:05 | NUR ---
PATIENT REFUSING ULTRASOUND. TECH DID NOT FINISH COMPLETE ULTRASOUND OF ABDOMEN. PATIENT REFUSED TO DO IT ANYMORE.
--- NOTE | 2018-06-05 14:07 | NUR ---
INFORMED TAN ROOM SUPERVISOR ALEM ABOUT PATIENT'S REFUSAL AND ADAMANT DEMAND TO BE RELEASED OR ELSE SHE WILL JARRED. PER DR. WOO'S INSTRUCTIONS, DR. RIVERO FROM CALLED TO SEE IF A 5150 HOLD CAN BE PLACED FOR GRAVELY DISABLED. DR. RIVERO IN TO SEE THE PATIENT. WILL WAIT FOR HIS ASSESSMENT. Addendum: 06/05/18 at 1450 by Elvis Burnette RN CALLED PATIENT'S RUBEN AT [phone] PER PATIENT'S WISHES SO WILL KNOW THAT SHE IS COMING HOME VIA TAXI. PER RUBEN'S REQUEST, HE DOES NOT WANT PATIENT HOME, HE WANTS HER OBSERVED BECAUSE THEY WANT TO KNOW WHY PATIENT IS ACTING THE WAY THAT SHE HAS RECENTLY BEEN ACTING. HE STATED "PLEASE HAVE SOMEONE SIT ON HER IF YOU HAVE TO. SHE CANNOT BE HOME AT THIS TIME." RN VERBALIZED UNDERSTANDING AND GAVE PHONE SO PATIENT CAN SPEAK TO . PATIENT FINISHED SPEAKING TO , THEN SAID THAT "I NEED TO GO HOME, MY IS VERY SICK, HE NEEDS ME AT HOME, I CAN'T STAY HERE ANOTHER NIGHT". RN VERBALIZED UNDERSTANDING BUT INFORMED PATIENT THAT THE DOCTOR WANTS HER TO STAY FOR THE URINE RESULTS AND CONSULTATION WITH DR. ORTIZ.
[2018-06-05] MEDS: LORazepam 0.5 MG TAB PO PRN (14:21)
--- NOTE | 2018-06-05 14:21 | NUR ---
PATIENT AGREED TO TAKE ATIVAN PO BUT REFUSES TO TAKE CELEXA ORDERED BY DR. ORTIZ. PATIENT REFUSED THAT AND ALSO REFUSED ABILIFY BEING ORDERED BY DR. RIVERO. RN VERBALIZED UNDERSTANDING BUT STATED WHY THOSE MEDICATIONS WERE NEEDED. PATIENT STATED "I DON'T NEED IT, I JUST NEED OUT!" RN VERBALIZED UNDERSTANDING.
[2018-06-05] MEDS ORDERED: CITALOPRAM 20 MG TAB PO SCH (14:30)
--- NOTE | 2018-06-05 14:45 | NUR ---
DR. RIVERO IN TO SEE THE PATIENT. HE WILL NOT PUT PATIENT ON 5150 HOLD FOR GRAVELY DISABLED AT THE MOMENT. JUST ORDERED ABILIFY 0.5 MG P.O DAILY. WILL FOLLOW HIS ORDER ONCE VERIFIED BY PHARMACY.
--- NOTE | 2018-06-05 15:55 | NUR ---
PATIENT'S RUBEN CALLED. GAVE HIM UPDATED INFORMATION. HE STATES THAT HE IS WORRIED ABOUT HER AND DOES NOT WANT HER TO BE DISCHARGED BECAUSE SHE WANTS TO GIVE AWAY HER MONEY AND HOUSE. RN VERBALIZED UNDERSTANDING. WILL KEEP HIM UPDATED.
[2018-06-05 16:00] VITALS: BP 152/68
--- NOTE | 2018-06-05 16:15 | NUR ---
PATIENT ATTEMPTED TO ELOPED. RN AT HER SIDE. PATIENT WENT OUTSIDE OF HOSPITAL TO EMERGENCY EXIT. SECURITY WAS CALLED. EXPLAINED TO PATIENT WHY SHE NEEDS TO STAY IN THE HOSPITAL UNTIL THE DOCTOR DECIDES TO DISCHARGE HER, SHE WAS AGITATED AND DID NOT AGREE WITH THE DOCTOR'S ORDERS. SECURITY ESCORTED PATIENT BACK INTO ROOM. WILL CONTINUE TO MONITOR PATIENT.
--- NOTE | 2018-06-05 16:23 | NUR ---
PATIENT'S SON PATTI CALLED. UPDATED HIM. HE STATES THAT HE IS WORRIED ABOUT HER AND DOES NOT WANT HER TO BE DISCHARGED, IT IS UNSAFE FOR HER PER HIS OPINION TO BE BACK HOME. RN VERBALIZED UNDERSTANDING. WILL KEEP HIM UPDATED.
--- NOTE | 2018-06-05 17:10 | NUR ---
PATIENT SITTING IN CHAIR IN RN STATION. PATIENT OFFERED ICE CREAM. PATIENT ACCEPTED IT. PATIENT STILL ATTEMPTED TO GO HOME BUT DID AGREE TO STAY AT THE RN STATION FOR THE MOMENT. WILL CONTINUE TO MONITOR PATIENT.
--- NOTE | 2018-06-05 19:30 | NUR ---
RECEIVED PT IN STABLE CONDITION FROM AM NURSE. AWAKE,ALERT AND ORIENTED BUT WITH PERIODS OF CONFUSION. PT REFUSED TO HAVE THE TELE MONITOR. AMBULATORY. WITH NO C/O OF ANY DISCOMFORT NOR PAIN NOTED. WILL CONTINUE TO MONITOR.
--- NOTE | 2018-06-05 19:30 | NUR ---
REPORT GIVEN TO CRIMINAL INVESTIGATOR NURSE AT BEDSIDE FOR CONTINUITY OF CARE. PATIENT IN STABLE CONDITION, STILL AGITATED AND WANTS TO GO HOME TO HER . RN GAVE PATIENT PHONE TO USE.
[2018-06-05 20:00] VITALS: BP 148/77
--- NOTE | 2018-06-05 20:30 | NUR ---
PT STILL REFUSED THE TELE MONITOR . ABLE TO START ANEW IV ACCESS ON THE LT FA322. CLEAR AND PATENT.
[2018-06-05] MEDS ORDERED: DONEPEZIL 10 MG TAB PO SCH (21:00)
--- NOTE | 2018-06-05 22:00 | NUR ---
PT IS ASLEEP. NO S/S OF ANY DISCOMFORT NOTED.
[2018-06-06 00:50] VITALS: BP 148/88
--- NOTE | 2018-06-06 00:50 | NUR ---
AWAKE. ABLE TO GET VITAL SIGNS. NO C/O ANY DISCOMFORT NOR PAIN NOTED.
--- NOTE | 2018-06-06 02:00 | NUR ---
PT IS SLEEPING AT THIS TIME. NO S/S/ OF ANY DISCOMFORT NOTED.
[2018-06-06 04:30] VITALS: BP 135/65
--- NOTE | 2018-06-06 04:42 | NUR ---
PT SAID OK TO START AGAIN THE TELE MONITOR -SR. NO C/O ANY PAIN NOTED.
--- NOTE | 2018-06-06 06:00 | NUR ---
AWAKE. GOT UP TO THE BATHROOM AND VOIDED. PT HAD SOME JUICE AFTER.
[2018-06-06 06:36] LABS: ALBUMIN 3.2 g/dL (3.4-5.0); ANION GAP 10.4 (8-16); ASPARTATE AMINOTRANSFERASE 45 U/L (15-37); CHLORIDE 96 mmol/L (98-107); CREATININE 0.6 mg/dL (0.6-1.3); GLUCOSE 59 mg/dL (74-106); POTASSIUM 3.4 mmol/L (3.5-5.1); SODIUM SERUM 132 mmol/L (136-145); TOTAL BILIRUBIN 0.8 mg/dL (0.0-1.0); UREA NITROGEN, BLOOD 5 mg/dL (7-18)
[2018-06-06 06:54] LABS: PROTHROMBIN TIME 12.3 secs (10.8-13.4)
--- NOTE | 2018-06-06 07:20 | NUR ---
ENDORSED PT IN STABLE CONDITION TO AM NURSE.
--- NOTE | 2018-06-06 07:20 | NUR ---
RECEIVED PT REPORT FROM [employer] TOOLING ENGINEER RN. PT IS AAOX3. ON TELE, DENIES PAIN, IV NOTED TO THE LEFT FA, FLUSHED, ASYMPTOMATIC, SL. FALL RISK PRECAUTIONS IN PLACE, BED ALARM ON, CALL LIGHT WITHIN REACH, WILL CONTINUE TO MONITOR.
[2018-06-06 07:32] LABS: HEMOGLOBIN 12.6 g/dL (12.0-16.0); RED BLOOD CELL COUNT(AUTO) 4.36 MIL/uL (4.20-5.40); WHITE BLOOD COUNT (AUTO) 6.9 K/uL (4.8-10.8)
[2018-06-06 07:33] LABS: MEAN CORPUSCULAR HEMOGLOBIN 29 pg (27-31); MEAN CORPUSCULAR HGB CONC 33 g/dL (33-37); MEAN CORPUSCULAR VOLUME 87.1 fL (80-94); PLATELET COUNT (AUTO) 227 K/uL (140-450); RED CELL DISTRIBUTION WIDTH 13.9 % (11.6-13.7)
[2018-06-06 07:34] LABS: LYMPHOCYTES % (AUTO) 21.5 % (20.5-51.1); MONOCYTES % (AUTO) 9.7 % (1.7-9.3); NEUTROPHILS % (AUTO) 65.4 % (42.2-75.2)
[2018-06-06 07:35] LABS: BASOPHILS % (AUTO) 2.3 % (0.0-2.0); EOSINOPHILS % (AUTO) 1.1 % (0.0-4.0)
[2018-06-06 08:00] VITALS: BP 166/73
--- NOTE | 2018-06-06 08:00 | NUR ---
PT IS EATING BREAKFAST, HAD COFFEE AND FRUITS, ORDERED WHITE TOAST PER PT'S REQUEST. NO S/S OF ACUTE DISTRESS.
--- NOTE | 2018-06-06 08:18 | NUR ---
DUE TO RECEIVING A FNS CONSULT, PATIENT HAS BEEN CATEGORIZED HIGH RISK. PATIENT WILL BE SEEN WITHIN 1-2 DAYS OF TODAY 06/06/18-06/07/[address]
[2018-06-06] MEDS: BENAZEPRIL 10 MG TAB PO SCH (08:48)
[2018-06-06] MEDS: amLODIPine 5 MG TAB PO SCH (08:49)
[2018-06-06] MEDS ORDERED: CITALOPRAM 20 MG TAB PO SCH (09:00)
[2018-06-06] MEDS ORDERED: ARIPiprazole 10 MG TAB PO SCH (09:00)
--- NOTE | 2018-06-06 11:00 | NUR ---
Telecommunications Technician Notes: Patient's husbands contacted me to discuss Patient's Plan of care and possible discharge today. Per Patient's Mr. Pearson patient has been under his care and recently she has been getting sick at home and its been difficult to care for her due to Mr. Pearson having his own health issues and having OCPD. I discuss with Mr. Pearson about family support and he stated that they have 10 children however; none of his sons and daughters are able to assist them and are living out of state. He included that patient has no advance directives and that he is patient's health care decision maker. Mr. Pearson stated that patient has no issues getting her medications and she has no special equipment at home. Patient's stated that he will want assistance with her care. I informed Mr. Pearson that patient may be on need of antibiotics and may need SNF care. He agreed and stated that he will want assistance with her care with SNF for at least until she is medically stable. I informed him that telehealth case manager is working with and coordinating with Insurance for that MD Yayo Lerma recommendations. Mr. Pearson was pleased to hear that and stated that if patient do not meet criteria for SNF care his plan is to take patient back home with him and care for patient himself. Mr. Pearson stated that he will continue communicating with me for updates. He thanked me for my assistance and ended the call.
[2018-06-06 12:00] VITALS: BP 116/47
--- NOTE | 2018-06-06 12:00 | NUR ---
ENCOURAGED PT TO EAT MORE. PT REFUSED TO THE PLAN FOR CORRECTION AND WANTS TO GO HOME. LEFT A MESSAGE OF [facility] CLERK'S PHONE.
--- NOTE | 2018-06-06 13:05 | NUR ---
Clinical review faxed to [facility] [phone]-
--- NOTE | 2018-06-06 13:25 | NUR ---
Spoke to [facility] director of casework, will arrange SNF placement and will call back. Skilled for Rocephin 1 gm IV daily for 7 days.
[2018-06-06] MEDS ORDERED: ARIP5TAB8 PO (13:37)
[2018-06-06] MEDS ORDERED: POTASSIUM CHLORIDE 10 MEQ TABER PO SCH (14:30)
--- NOTE | 2018-06-06 14:48 | NUR ---
06/06/18 RD INITIAL ASSESSMENT COMPLETED PLEASE REFER TO NUTRITION ASSESSMENT UNDER CARE ACTIVITY FOR ESTIMATED NUTRITIONAL NEEDS. 1. CONTINUE [facility] SOFT DIET TOLERATED 2. RECOMMEND HEALTH SHAKE TID 3. RD TO FOLLOW-UP 3-5 DAYS, MODERATE RISK DENZEL GALVEZ, RD
--- NOTE | 2018-06-06 14:48 | NUR ---
Patient will go home with home health. order faxed to Silvina and will set up home health.
--- NOTE | 2018-06-06 15:30 | NUR ---
PT DISCHARGED PER MD ORDER. DISCHARGE INSTRUCTION AND MEDICATION TEACHING PROVIDED. PT VERBALIZED UNDERSTANDING. MADE PT AWARE OF HER SCHEDULED APPT ON SUNDAY 2 PM. IV DC'D, TIP INTACT, PRESSURE APPLIED. PT SIGNED ALL DISCHARGE PAPER, LEFT IN STABLE CONDITION, WITH ALL HER BELONGINGS. DITCHING MACHINE ENGINEER WHEELED PT OUT. PICKING HER UP IN FRONT OF THE LOBBY.
--- NOTE | 2018-06-06 16:05 | NUR ---
CALLED PT'S , REMIND HIM OF THE NEW MEDICATIONS AND SCHEDULED APPT WITH DR WOO.
--- NOTE | 2018-06-06 16:24 | NUR ---
Braille Typist Notes: I called Patient's Mr. Pearson at his cell phone to informed him that Insurance have set up Home Health Services for patient and that he will be receiving a call from Home Health RN to set up time for evaluation. Mr. Pearson agreed and thanked me for my assistance.
--- NOTE | 2018-06-11 10:09 | NUR ---
FAXED DISCHARGE SUMMARY TO [facility] [phone]
== END 2018-06-06 15:30 | disposition home or self-care (01) | DRG 56 ==
LOC: MED 18:56 → MTU 22:52
PROVIDERS: ADMIT Family Medicine; ATTEND Family Medicine
DX: G30.9 Alzheimer's disease, unspecified (principal); G93.41 Metabolic encephalopathy; E87.1 Hypo-osmolality and hyponatremia; F05 Delirium due to known physiological condition; I10 Essential (primary) hypertension; J44.9 Chronic obstructive pulmonary disease, unspecified; E78.5 Hyperlipidemia, unspecified; E86.0 Dehydration; M19.90 Unspecified osteoarthritis, unspecified site; F02.80 Dementia in other diseases classified elsewhere, unspecified severity, without behavioral disturbance, psychotic disturbance, mood disturbance, and anxiety; K83.8 Other specified diseases of biliary tract; T50.2X5A Adverse effect of carbonic-anhydrase inhibitors, benzothiadiazides and other diuretics, initial encounter; F29 Unspecified psychosis not due to a substance or known physiological condition; Z79.82 Long term (current) use of aspirin; Z87.891 Personal history of nicotine dependence; Z79.899 Other long term (current) drug therapy
CPT/HCPCS: 36415; 70450; 71045; 76700; 80048; 80053; 80076; 80305; 81001; 82140; 82607; 82948; 83605; 84443; 85025; 85610; 87040; 87081; 87086; 96365; 96372; 99285; G0480; G0482; J0696; J1630; J7030; J7060; Q0092

== ENCOUNTER 2018-06-12 01:45 | Emergency (ER) | payer OTHER ==
[~2018-06-12] VITALS: Ht 152.4 cm; Wt 49.0 kg
[~2018-06-12 01:45] MED LIST changes: +ARIP5TAB8 PO
[2018-06-12 01:46] VITALS: BP 140/69
[2018-06-12] MEDS ORDERED: HYDROcodone/APAP 5/325 MG 1 TAB TAB PO ONE (02:10)
[2018-06-12] MEDS ORDERED: LEVO500T2 PO (02:19)
[2018-06-12] MEDS ORDERED: CARV3.12 PO (02:19)
[2018-06-12] MEDS ORDERED: MIRT15TA PO (02:19)
[2018-06-12 04:32] VITALS: BP 140/69
[2018-06-13] MEDS ORDERED: LEVA0.043 IH (13:23)
[2018-06-13] MEDS ORDERED: ATRMDI IH (13:23)
== END 2018-06-12 04:32 | disposition home or self-care (01) ==
LOC: MED 01:45
DX: R07.81 Pleurodynia (principal); R05 Cough; E78.5 Hyperlipidemia, unspecified; J44.9 Chronic obstructive pulmonary disease, unspecified; Z79.82 Long term (current) use of aspirin; Z79.899 Other long term (current) drug therapy
CPT/HCPCS: 71045; 99283; Q0092

== ENCOUNTER 2018-06-13 13:14 | Inpatient (IN) | payer OTHER ==
[~2018-06-13] VITALS: Ht 149.9 cm; Wt 49.0 kg
[~2018-06-13 13:14] MED LIST changes: -ARIP5TAB8 PO; +CARV3.12 PO; +LEVO500T2 PO; +MIRT15TA PO
--- NOTE | 2018-06-13 13:14 | NUR ---
Patient BIBA BLS, transferred to bed 4. RN evaluating patient at bedside.
[2018-06-13 13:15] VITALS: BP 162/74
[2018-06-13] MEDS ORDERED: ATRMDI IH (13:23)
[2018-06-13] MEDS ORDERED: LEVA0.043 IH (13:23)
--- NOTE | 2018-06-13 13:28 | NUR ---
pt comes to er with c.o sob with productive cough, intermittent for the last 3 days, worsening at night. states once she coughed up phlegm 10 min bellhop service captain, she felt immediate relief. Denies sob or cp at this time. resp even and unlabored, in nad. ls-clr rachel with dimished at bases. skin w/d/i. denies any fevers.chills. Denies any n/v/d. Pt thin in appearence, tolerating po fluids well. Pt also reports she was here for the same issue, but not getting better.
[2018-06-13] MEDS ORDERED: methylPREDNISolone SS 125 MG in WATER STERILE 2 ML IV ONE (13:45)
[2018-06-13] MEDS ORDERED: ALBUTEROL SULFATE/IPRATROPIU 3 ML SOL IH ONE (13:45)
--- NOTE | 2018-06-13 14:20 | NUR ---
ABG DONE WITH NO INCIDENT. NO SOB OR DISTRESS NOTED. HHN TX GIVEN.
[2018-06-13 14:24] LABS: BASOPHILS # (AUTO) 0.1 K/uL (0.00-0.22); BASOPHILS % (AUTO) 0.9 % (0.0-2.0); EOSINOPHILS # (AUTO) 0.1 K/uL (0-0.4); EOSINOPHILS % (AUTO) 1.4 % (0.0-4.0); HEMATOCRIT 35.3 % (36-48); HEMOGLOBIN 11.7 g/dL (12.0-16.0); LYMPHOCYTES # (AUTO) 0.8 K/uL (2.5-16.5); LYMPHOCYTES % (AUTO) 14.6 % (20.5-51.1); MEAN CORPUSCULAR HEMOGLOBIN 28 pg (27-31); MEAN CORPUSCULAR HGB CONC 33 g/dL (33-37); MEAN CORPUSCULAR VOLUME 84.8 fL (80-94); MONOCYTES # (AUTO) 0.7 K/uL (0.8-1.0); MONOCYTES % (AUTO) 12.8 % (1.7-9.3); NEUTROPHILS % (AUTO) 70.3 % (42.2-75.2); PLATELET COUNT (AUTO) 242 K/uL (140-450); RED BLOOD CELL COUNT(AUTO) 4.17 MIL/uL (4.20-5.40); RED CELL DISTRIBUTION WIDTH 14.9 % (11.6-13.7); WHITE BLOOD COUNT (AUTO) 5.7 K/uL (4.8-10.8)
[2018-06-13 15:11] LABS: ANION GAP 8.7 (8-16); CHLORIDE 93 mmol/L (98-107); GLUCOSE 93 mg/dL (74-106); POTASSIUM 3.7 mmol/L (3.5-5.1); SODIUM SERUM 129 mmol/L (136-145)
[2018-06-13 15:12] LABS: CREATININE 0.6 mg/dL (0.6-1.3); UREA NITROGEN, BLOOD 10 mg/dL (7-18)
--- NOTE | 2018-06-13 15:14 | NUR ---
no acute changes in conditon, vss. Pt denies any cp or sob. resp even and unlabored. Requesting lunch, per er md ,ok to feed.
--- NOTE | 2018-06-13 15:16 | NUR ---
trop 0.102, ER aware .
[2018-06-13] MEDS ORDERED: ASPIRIN 325 MG TAB PO ONE (15:20)
[2018-06-13] MEDS ORDERED: HYDROcodone/APAP 5/325 MG 1 TAB TAB PO PRN (15:30)
[2018-06-13] MEDS ORDERED: NACL 0.9% 1,000 ML IV SCH (15:30)
[2018-06-13] MEDS ORDERED: LORazepam 2 MG/ML VIAL IM/IVP PRN (15:30)
[2018-06-13] MEDS ORDERED: MORPHINE SULFATE 2 MG/ML SYR IVP PRN (15:30)
[2018-06-13] MEDS ORDERED: DOCUSATE SODIUM 100 MG GELCAP PO PRN (15:30)
[2018-06-13] MEDS ORDERED: ZOLPIDEM 5 MG TAB PO PRN (15:30)
[2018-06-13] MEDS ORDERED: ONDANSETRON 4 MG/2 ML VIAL IM/IVP PRN (15:30)
[2018-06-13] MEDS ORDERED: ACETAMINOPHEN 325 MG TAB PO PRN (15:30)
[2018-06-13 16:00] VITALS: BP 115/68
--- NOTE | 2018-06-13 16:05 | NUR ---
PT ARRIVE ON UNIT VIA GURNEY. BEDSIDE REPORT GIVEN TO CHARGE NURSE. V/S TAKEN ALL WITHIN NORMAL LIMITS. IV IN LEFT HAND, 20 G, PATENT. CALL LIGHT WITHIN REACH, BED IN LOWEST POSITION WILL CONTINUE TO MONITOR.
[2018-06-13 16:18] VITALS: BP 149/72
--- NOTE | 2018-06-13 16:21 | NUR ---
Patient will be admitted to care of DR LOPEZ. Admited to tele Will go to room. Belongings list completed. Report to .
[2018-06-13 16:42] LABS: PROTHROMBIN TIME 10.7 secs (10.8-13.4)
[2018-06-13 16:43] LABS: APPEARANCE,URINE CLEAR (CLEAR); BILIRUBIN,URINE NEGATIVE (NEGATIVE); BLOOD, URINE NEGATIVE (NEGATIVE); COLOR,URINE YELLOW (YELLOW); LEUKOCYTE ESTERASE ,URINE 1+ (NEGATIVE); NITRITE, URINE NEGATIVE (NEGATIVE); UGLUCOSE NEGATIVE (NEGATIVE)
[2018-06-13 16:48] LABS: RBC,URINE 0-5 (RARE) /HPF (0-5); WBC,URINE 6-15 (FEW) /HPF (0-5)
[2018-06-13 16:50] LABS: ANION GAP 11.6 (8-16); CARBON DIOXIDE 28.2 mmol/L (21-32); CHLORIDE 93 mmol/L (98-107); GLUCOSE 96 mg/dL (74-106); POTASSIUM 3.8 mmol/L (3.5-5.1); SODIUM SERUM 129 mmol/L (136-145)
[2018-06-13 16:51] LABS: ALBUMIN 3.2 g/dL (3.4-5.0); ASPARTATE AMINOTRANSFERASE 34 U/L (15-37); CREATININE 0.6 mg/dL (0.6-1.3); LIPASE 133 U/L (73-393); MAGNESIUM 1.6 mg/dL (1.8-2.4); PHOSPHORUS 3.6 mg/dL (2.5-4.9); TOTAL BILIRUBIN 0.7 mg/dL (0.0-1.0); UREA NITROGEN, BLOOD 10 mg/dL (7-18)
--- NOTE | 2018-06-13 18:00 | NUR ---
STARTED NACL RUNNING AT 50 ML/HR. WILL CONTINUE TO MONITOR.
[2018-06-13] MEDS ORDERED: ALBUTEROL SULFATE/IPRATROPIU 3 ML SOL IH PRN (18:40)
[2018-06-13] MEDS ORDERED: ALBUTEROL SULFATE/IPRATROPIU 3 ML SOL IH SCH (19:00)
--- NOTE | 2018-06-13 19:10 | NUR ---
GAVE REPORT TO BLEACHER PULP NURSE DAGO PT STATES "I NEED TO LEAVE NOW, NO ONE IS WITH MY , NOT EVEN A NURSE" EXPLAINED THAT PT WOULD NEED TO SIGN AMA, PT STATED "ILL SIGN WHATEVER I NEED TO." CHARGE NURSE CARLOTTA AWARE OF SITUATION.
--- NOTE | 2018-06-13 19:15 | NUR ---
RECEIVED REPORT FROM DAY SHIFT RN FOR CONTINUITY OF CARE. PT IS A/OX4, ON ROOM AIR. PT IS ABLE TO MAKE NEEDS KNOWN, ABLE TO FOLLOW COMMANDS. RESPIRATIONS EVEN AND UNLABORED AT THE MOMENT. SKIN IS INTACT. PT HAS 22G IV TO LEFT AC, ASYMPTOMATIC, INTACT AND PATENT. DISCUSSED PLAN OF CARE WITH PT, PT STATES SHE WANTS TO GO HOME AGAINST MEDICAL ADVICE. TOLD PT DR BALDERAS WILL BE INFORMED. NO SIGNS OF DISTRESS NOTED AT THIS TIME. BED IN LOWEST POSITION, BED ALARM ON. CALL LIGHT WITHIN REACH, WILL CONTINUE TO MONITOR.
[2018-06-13] MEDS ORDERED: MAGNESIUM OXIDE 400 MG TAB PO SCH (20:00)
--- NOTE | 2018-06-13 20:05 | NUR ---
PT LEFT UNIT IN WHEELCHAIR WITH RN, PT TELE MONITOR REMOVED, IV REMOVED WITH CATHETER INTACT, ARMBAND REMOVED, AND PT GOT DRESSED. PT IN STABLE CONDITION, GAVE PT PRESCRIPTION DR BALDERAS WROTE.
[2018-06-13] MEDS ORDERED: CARVEDILOL 3.125 MG TAB PO SCH (21:00)
[2018-06-13] MEDS ORDERED: MIRTAZAPINE 15 MG TAB PO SCH (21:00)
[2018-06-14] MEDS ORDERED: ATORVASTATIN 20 MG TAB PO SCH (09:00)
[2018-06-14] MEDS ORDERED: BENAZEPRIL 20 MG TAB PO SCH (09:00)
[2018-06-14] MEDS ORDERED: ASPIRIN 81 MG TAB.CHEW PO SCH (09:00)
[2018-06-14] MEDS ORDERED: HYDROCHLOROTHIAZIDE 25 MG TAB PO SCH (09:00)
[2018-06-14] MEDS ORDERED: amLODIPine 5 MG TAB PO SCH (09:00)
--- NOTE | 2018-06-14 09:02 | NUR ---
FAXED RETRO ER REPORT, H&P AND DISCHARGE SUMMARY TO [facility] [phone]
== END 2018-06-13 20:05 | disposition left against medical advice (07) | DRG 190 ==
LOC: MED 13:14 → MTU 15:30
PROVIDERS: ADMIT General Practice; ATTEND General Practice
DX: J44.1 Chronic obstructive pulmonary disease with (acute) exacerbation (principal); J18.9 Pneumonia, unspecified organism; E44.0 Moderate protein-calorie malnutrition; E87.1 Hypo-osmolality and hyponatremia; J44.0 Chronic obstructive pulmonary disease with (acute) lower respiratory infection; I11.0 Hypertensive heart disease with heart failure; I50.9 Heart failure, unspecified; F32.9 Major depressive disorder, single episode, unspecified; R82.4 Acetonuria; E83.42 Hypomagnesemia; E87.8 Other disorders of electrolyte and fluid balance, not elsewhere classified; Z53.21 Procedure and treatment not carried out due to patient leaving prior to being seen by health care provider; Z79.82 Long term (current) use of aspirin; Z79.899 Other long term (current) drug therapy; Z83.6 Family history of other diseases of the respiratory system; Z68.21 Body mass index [BMI] 21.0-21.9, adult
CPT/HCPCS: 36415; 71046; 80048; 80053; 81001; 83036; 83690; 83735; 83880; 84100; 84134; 84436; 84443; 84484; 85025; 85610; 85730; 87081; 87086; 93005; 96374; 99285; J2930; J7030; J7620; Q0092

== ENCOUNTER 2018-07-10 21:51 | Emergency (ER) | payer OTHER ==
[~2018-07-10] VITALS: Ht 154.9 cm; Wt 45.4 kg
[~2018-07-10 21:51] MED LIST changes: +ATRMDI IH; +LEVA0.043 IH; -LEVO500T2 PO
[2018-07-10 21:56] VITALS: BP 140/66
--- NOTE | 2018-07-10 21:56 | NUR ---
PT BIBA TO ED BED 2.
--- NOTE | 2018-07-10 22:04 | NUR ---
PT C/O HEMATURIA, AND R FLANK PAIN X TONIGHT. INCREASED FREQUENCY AND URINATION. 8/10 ACHING.
[2018-07-10] MEDS ORDERED: cefTRIAXone 1,000 MG VIAL ONE (22:33)
--- NOTE | 2018-07-10 22:49 | NUR ---
PT AMBULATED TO ER BATHROOM, EVEN STEADY GAIT.
[2018-07-10 22:54] LABS: BASOPHILS # (AUTO) 0.1 K/uL (0.00-0.22); BASOPHILS % (AUTO) 1.1 % (0.0-2.0); EOSINOPHILS # (AUTO) 0.1 K/uL (0-0.4); EOSINOPHILS % (AUTO) 2.1 % (0.0-4.0); HEMATOCRIT 37.7 % (36-48); HEMOGLOBIN 12.3 g/dL (12.0-16.0); LYMPHOCYTES % (AUTO) 18.9 % (20.5-51.1); MEAN CORPUSCULAR HEMOGLOBIN 29 pg (27-31); MEAN CORPUSCULAR HGB CONC 33 g/dL (33-37); MEAN CORPUSCULAR VOLUME 88.4 fL (80-94); MONOCYTES # (AUTO) 0.4 K/uL (0.8-1.0); MONOCYTES % (AUTO) 7.5 % (1.7-9.3); NEUTROPHILS # (AUTO) 3.9 K/uL (1.8-7.7); NEUTROPHILS % (AUTO) 70.4 % (42.2-75.2); PLATELET COUNT (AUTO) 280 K/uL (140-450); RED BLOOD CELL COUNT(AUTO) 4.26 MIL/uL (4.20-5.40); WHITE BLOOD COUNT (AUTO) 5.5 K/uL (4.8-10.8)
[2018-07-10 23:02] LABS: ANION GAP 8.7 (8-16); CARBON DIOXIDE 27.9 mmol/L (21-32); CHLORIDE 101 mmol/L (98-107); CREATININE 0.4 mg/dL (0.6-1.3); GLUCOSE 92 mg/dL (74-106); POTASSIUM 3.6 mmol/L (3.5-5.1); SODIUM SERUM 134 mmol/L (136-145); UREA NITROGEN, BLOOD 10 mg/dL (7-18)
[2018-07-10 23:09] LABS: ASPARTATE AMINOTRANSFERASE 26 U/L (15-37); TOTAL BILIRUBIN 0.2 mg/dL (0.0-1.0)
[2018-07-11 01:05] VITALS: BP 136/80
--- NOTE | 2018-07-11 01:05 | NUR ---
Patient discharged with v/s stable. Written and verbal after care instructions given and explained. Patient alert, oriented and verbalized understanding of instructions. Ambulatory with steady gait. All questions addressed prior to discharge. ID band removed. Patient advised to follow up with PMD. Rx of CIPRO given. Patient educated on indication of medication including possible reaction and side effects. Opportunity to ask questions provided and answered. PT TO LOBBY TO WAIT FOR
== END 2018-07-11 01:05 | disposition home or self-care (01) ==
LOC: MED 21:51
DX: N39.0 Urinary tract infection, site not specified (principal); R31.9 Hematuria, unspecified; J43.9 Emphysema, unspecified; Z79.899 Other long term (current) drug therapy; Z79.82 Long term (current) use of aspirin
CPT/HCPCS: 36415; 80053; 81002; 85025; 99284; J0696

== ENCOUNTER 2018-10-06 02:37 | Inpatient (IN) | payer OTHER ==
[~2018-10-06] VITALS: Ht 144.8 cm; Wt 37.2 kg
[2018-10-06 02:37] VITALS: BP 131/66
--- NOTE | 2018-10-06 02:37 | NUR ---
88/F BIBA FOR HEMATURIA X 2 DAYS. PT REPORTS LOWER ABD PAIN, DENIES DYSURIA. PT ARRIVED ON 2LPMNC SATS 96%, PER PT HER PLACED HER ON OXYGEN BECAUSE SHE WAS HAVING DYSPNEA. 24RR EVEN AND MILDLY LABORED, DIMINISHED LUNG SOUNDS THROUGHOUT. PMH: COPD, HTN, CANCER (DIAGNOSED LAST WEEK)
--- NOTE | 2018-10-06 02:37 | NUR ---
Patient noted to have existing wounds upon arrival to ER. Photos taken of wound and placed in chart. Wound covered with dressing. Physician informed.
--- NOTE | 2018-10-06 02:37 | NUR ---
BIBA BLS TO ER BED 10
--- NOTE | 2018-10-06 02:55 | NUR ---
Patient being evaluated by physician at bedside.
[2018-10-06] MEDS ORDERED: NACL 0.9% 1,000 ML IV ONE (03:00)
[2018-10-06 03:49] LABS: APPEARANCE,URINE CLOUDY (CLEAR); BLOOD, URINE LARGE (NEGATIVE); COLOR,URINE RED (YELLOW); NITRITE, URINE POSITIVE (NEGATIVE); UGLUCOSE NEGATIVE (NEGATIVE)
[2018-10-06 03:51] LABS: LEUKOCYTE ESTERASE ,URINE NEGATIVE (NEGATIVE); PH,URINE 8.5 (5.0-9.0)
[2018-10-06 03:53] LABS: BILIRUBIN,URINE NEGATIVE (NEGATIVE)
[2018-10-06 03:54] LABS: RBC,URINE TOO NUMEROUS TO COUN /HPF (0-5); WBC,URINE 0-5 (RARE) /HPF (0-5)
[2018-10-06 03:55] LABS: TRIPLE PHOSPHATE CRYSTAL,UR 0-10 /HPF (None Seen)
[2018-10-06 04:04] LABS: ANION GAP 8.9 (8-16); CARBON DIOXIDE 35.5 mmol/L (21-32); CHLORIDE 105 mmol/L (98-107); CREATININE 0.8 mg/dL (0.6-1.3); GLUCOSE 97 mg/dL (74-106); POTASSIUM 4.4 mmol/L (3.5-5.1); SODIUM SERUM 145 mmol/L (136-145); UREA NITROGEN, BLOOD 42 mg/dL (7-18)
[2018-10-06] MEDS ORDERED: LEVOFLOXACIN 500 MG/D5W PREMIX 100 ML IV ONE (04:05)
[2018-10-06] MEDS ORDERED: NACL 0.9% 500 ML IV ONE (04:05)
[2018-10-06 04:09] LABS: ALBUMIN 2.3 g/dL (3.4-5.0); ASPARTATE AMINOTRANSFERASE 15 U/L (15-37); TOTAL BILIRUBIN 0.4 mg/dL (0.0-1.0)
[2018-10-06 04:21] LABS: HEMATOCRIT 38.3 % (36-48); HEMOGLOBIN 12.1 g/dL (12.0-16.0); MEAN CORPUSCULAR HEMOGLOBIN 26 pg (27-31); MEAN CORPUSCULAR HGB CONC 32 g/dL (33-37); MEAN CORPUSCULAR VOLUME 81.8 fL (80-94); PLATELET COUNT (AUTO) 404 K/uL (140-450); RED BLOOD CELL COUNT(AUTO) 4.68 MIL/uL (4.20-5.40)
[2018-10-06 04:25] LABS: WHITE BLOOD COUNT (AUTO) 32.4 K/uL (4.8-10.8)
[2018-10-06] MEDS ORDERED: ONDANSETRON 4 MG/2 ML VIAL IM/IVP PRN (04:30)
[2018-10-06] MEDS ORDERED: ACETAMINOPHEN 325 MG TAB PO PRN (04:30)
[2018-10-06] MEDS ORDERED: DOCUSATE SODIUM 100 MG GELCAP PO PRN (04:30)
[2018-10-06] MEDS ORDERED: HYDROcodone/APAP 7.5/325 MG 1 TAB PO PRN (04:30)
[2018-10-06 04:37] LABS: BASOPHILS % (MANUAL) 0 % (0-2); EOSINOPHILS % (MANUAL) 2 % (0-4); LYMPHOCYTES % (MANUAL) 2 % (20-46); MONOCYTES % (MANUAL) 3 % (5-12)
[2018-10-06] MEDS ORDERED: ALBUTEROL SULFATE/IPRATROPIU 3 ML SOL IH PRN (05:00)
--- NOTE | 2018-10-06 05:02 | NUR ---
Patient will be admitted to care of [facility]. Admited to MS. Will go to room 107B. Belongings list completed. Report to SOFIA WAN.
--- NOTE | 2018-10-06 05:03 | NUR ---
Pt transferred to Med/Surg via BED WITH SAHARA ROSADO AND RN NURIS.
[2018-10-06 05:04] LABS: PROTHROMBIN TIME 11.2 secs (10.8-13.4)
[2018-10-06 05:05] VITALS: BP 138/67
--- NOTE | 2018-10-06 05:05 | NUR ---
RECEIVED REPORT FROM DAYSHIFT NURSE AT BEDSIDE FOR CONTINUITY OF CARE. PT AAOX4. PT IV NOTED LAC 20G (LEVAQUIN RUNNING). NO SOB NO S/S OF DISTRESS ON 2L. PT FALL RISK. BED ALARM PLACED. BED LOWERED PT ORIENTED TO ROOM WILL CONTINUE TO MONITOR.
[2018-10-06 05:18] LABS: CHOL/HDL RATIO 3.3 (1-4.5); FREE T4 (FREE THYROXINE) 1.09 ng/dL (0.76-1.46); MAGNESIUM 2.2 mg/dL (1.8-2.4); PHOSPHORUS 3.5 mg/dL (2.5-4.9)
[2018-10-06] MEDS ORDERED: HYDRAGUARD CREAM TP PRN (05:25)
[2018-10-06 05:26] LABS: BARBITURATE, URINE NEG. ng/ml (NEG <=200); BENZODIAZEPINE, URINE NEG. ng/mL (NEG <=200); CANNABINOID, URINE NEG. ng/mL (NEG <=50); COCAINE, URINE NEG. ng/mL (NEG <=300); OPIATE, URINE NEG. ng/mL (NEG <=2000); PHENCYCLIDINE SCREEN,URINE NEG. ng/mL (NEG <=25)
[2018-10-06 05:39] LABS: THYROID STIMULATING HORMONE 1.43 uIU/mL (0.34-3.74)
[2018-10-06] MEDS ORDERED: cefTRIAXone 1,000 MG VIAL ONE (05:48)
[2018-10-06] MEDS: NACL 0.9% 1,000 ML IV SCH (06:01)
--- NOTE | 2018-10-06 06:13 | NUR ---
PT NEEDS TO STANDBY ASSISTANCE FOR AMBULATING TO BATHROOM. IV INTACT FLUSHING FINE. WILL CONTINUE TO MONITOR.
--- NOTE | 2018-10-06 06:30 | NUR ---
DNR PT HAS IT BUT CANNOT GET COPY, RESIDENT AWARE WILL FILL OUT PINK PAPER/DNR AND PUT IN CHART. RESIDENT AWARE TO ORDER FNS CONSULT AND WOUND CONSULT
[2018-10-06] MEDS: ALBUTEROL SULFATE/IPRATROPIU 3 ML SOL IH SCH ×3 (07:00→19:21)
--- NOTE | 2018-10-06 07:30 | NUR ---
ENDORSED REPORT TO DAYSHIFT NURSE AT BEDSIDE FOR CONTINUITY OF CARE.
--- NOTE | 2018-10-06 07:31 | NUR ---
RECEIVED REPORT FROM LETTERER NURSE. PATIENT LYING DOWN IN BED COMFORTABLY. NO DISTRESS NOTED. DENIES ANY PAIN. LUNGS CTA ON ALL LOBES. AAOX3, CALM, COOPERATIVE, SKIN COLOR APPROPRIATE TO ETHNICITY, WARM TO TOUCH. RIGHT BUTTOCK LESION, SACRAL WOUND, AND LEFT EAR LESION NOTED, DRESSING DRY AND INTACT. PATIENT LOOKS CACHEXIC. RESPIRATIONS EVEN, UNLABORED, ON O2 2L/MIN VIA NC. IV SITE INTACT, PATENT, AND INFUSING IVF ORDERS. REVIEWED PLAN OF CARE WITH PATIENT. PATIENT VERBALIZED UNDERSTANDING. SAFETY MEASURES IN PLACE, CALL LIGHT WITHIN REACH. WILL CONTINUE TO MONITOR.
[2018-10-06 08:00] VITALS: BP 111/55
--- NOTE | 2018-10-06 08:51 | NUR ---
PTS SP02 ON ROOM AIR IS 87 2L N/C REPLACED
[2018-10-06] MEDS: amLODIPine 5 MG TAB PO SCH (09:00)
[2018-10-06] MEDS: BENAZEPRIL 20 MG TAB PO SCH (09:00)
[2018-10-06] MEDS: LACTOBACILLUS RHAMNOSUS GG 1 EACH CAP PO SCH (09:13)
[2018-10-06] MEDS: HYDROCHLOROTHIAZIDE 25 MG TAB PO SCH (09:13)
[2018-10-06] MEDS: CARVEDILOL 3.125 MG TAB PO SCH ×2 (09:14→16:21)
--- NOTE | 2018-10-06 09:26 | NUR ---
PATIENT SITTING IN BED COMFORTABLY. NO DISTRESS NOTED. DENIES ANY PAIN. SCHEDULED MEDICATIONS DUE GIVEN. DR. STODDARD AT BEDSIDE REVIEWING PLAN OF CARE WITH PATIENT. WILL CONTINUE TO MONITOR.
--- NOTE | 2018-10-06 11:30 | NUR ---
ASSISTED FARMWORKER FRUIT IN CLEANING AND REPOSITIONING PATIENT. WILL CONTINUE TO MONITOR.
--- NOTE | 2018-10-06 13:16 | NUR ---
PATIENT LYING DOWN IN BED SLEEPING, AROUSABLE BY VOICE. CONDITION UNCHANGED. WILL CONTINUE TO MONITOR.
[2018-10-06 16:00] VITALS: BP 96/55
--- NOTE | 2018-10-06 16:21 | NUR ---
PATIENT LYING DOWN IN BED SLEEPING, AROUSABLE BY VOICE. AT BEDSIDE. NO DISTRESS NOTED. DENIES ANY PAIN. SCHEDULED BP MEDS WITHHELD PER PARAMETERS. CONDITION UNCHANGED. WILL CONTINUE TO MONITOR.
--- NOTE | 2018-10-06 18:30 | NUR ---
PATIENT SITTING IN BED LOOKING AT MAGAZINES. NO DISTRESS NOTED. CONDITION UNCHANGED. WILL CONTINUE TO MONITOR.
[2018-10-06] MEDS ORDERED: FUROSEMIDE 20 MG/2 ML VIAL IVP SCH (19:00)
[2018-10-06] MEDS ORDERED: methylPREDNISolone SS 125 MG/2 ML VIAL IVP SCH (19:00)
--- NOTE | 2018-10-06 19:28 | NUR ---
GAVE REPORT TO CVICU NURSE NURSE FOR CONTINUITY OF CARE. PATIENT IN STABLE CONDITION.
--- NOTE | 2018-10-06 19:29 | NUR ---
RECEIVED PT IN STABLE CONDITION FROM AM NURSE. PT IS AWAKE,ALERT AND ORIENTED X4. MED SURG PT. WITH NO C/O ANY RESPIRATORY DISTRESS , ON O22L/NC. IVF INFUSING WELL ON THE LT AC#20, CLEAR AND PATENT. CAN BE UP TO THE BATHROOM WITH SOME ASSISTANCE. GETTING BREATHING TREATMENT AT THIS TIME. WITH RT BUTTOCKS SMALL LESION AND LT EAR REDNESS. PLAN OF CARE DISCUSSED AND VERBALIZED UNDERSTANDING. BED ON LOWEST POSITION. FREQUENT ROUNDS NEEDED. CALL LIGHT PLACED WITHIN EASY REACH. WILL CONTINUE TO MONITOR.
[2018-10-06] MEDS ORDERED: CLINDAMYCIN 600 MG/4 ML VIAL ONE (20:00)
[2018-10-06] MEDS: CLINDAMYCIN 600 MG in DEXTROSE 5% 50 ML IV SCH (20:25)
[2018-10-06] MEDS: MIRTAZAPINE 15 MG TAB PO SCH (20:26)
--- NOTE | 2018-10-06 21:25 | NUR ---
PT ASSISTED UP TO THE BATHROOM. VOIDED ,STILL WITH HEMATURIA . GENERALIZED WEAKNESS. PROVIDED BEDSIDE COMMODE DUE TO WEAKNESS AND TO PREVENT SOB. BED ALARM PUT BACK ON. REINSTRUCTED PT TO CALL IF NEED TO GET UP .
--- NOTE | 2018-10-06 23:00 | NUR ---
PT IS ASLEEP. NO DISTRESS NOR ANY DISCOMFORT NOTED.
[2018-10-07 00:08] VITALS: BP 101/50
--- NOTE | 2018-10-07 01:00 | NUR ---
MADE ROUNDS. PT IS ASLEEP. NO S/S OF ANY DISCOMFORT NOTED. WILL CONTINUE TO MONITOR.
--- NOTE | 2018-10-07 03:00 | NUR ---
MADE ROUNDS. PT ASLEEP. NO DISTRESS NOR PAIN /DISCOMFORT NOTED.
[2018-10-07] MEDS: NACL 0.9% 1,000 ML IV SCH (04:28)
[2018-10-07] MEDS ORDERED: CLINDAMYCIN 600 MG/4 ML VIAL ONE (04:34)
[2018-10-07] MEDS: methylPREDNISolone SS 125 MG/2 ML VIAL IVP SCH ×3 (04:36→20:57)
[2018-10-07] MEDS: CLINDAMYCIN 600 MG in DEXTROSE 5% 50 ML IV SCH (04:37)
--- NOTE | 2018-10-07 05:30 | NUR ---
PT SIGNED CONSENT FOR THE CT GUIDED THORACENTESIS, AWARE ABOUT THE PROCEDURE.
--- NOTE | 2018-10-07 06:30 | NUR ---
PT IS SLEEPING WELL AT THIS TIME. NO S/S OF ANY DISTRESS NOTED.
[2018-10-07] MEDS: ALBUTEROL SULFATE/IPRATROPIU 3 ML SOL IH SCH ×3 (06:41→19:01)
[2018-10-07 07:15] LABS: HEMATOCRIT 39.4 % (36-48); HEMOGLOBIN 12.1 g/dL (12.0-16.0); MEAN CORPUSCULAR HEMOGLOBIN 25 pg (27-31); MEAN CORPUSCULAR HGB CONC 31 g/dL (33-37); MEAN CORPUSCULAR VOLUME 82.7 fL (80-94); PLATELET COUNT (AUTO) 383 K/uL (140-450); RED BLOOD CELL COUNT(AUTO) 4.76 MIL/uL (4.20-5.40); RED CELL DISTRIBUTION WIDTH 16.6 % (11.6-13.7)
--- NOTE | 2018-10-07 07:20 | NUR ---
RECEIVED PT REPORT FROM USER INTERFACE DEVELOPER NURSE. PT IS ALERT AND AWAKE IN BED, NO S/S OF DISTRESS NOTED, NO SOB, NO C/O PAIN AT THIS TIME. PT IS ON 2 L O2 NC. LACERATION NOTED ON L EAR COVERED BY DRESSING, LESION ON R BUTTOCK NOTED COVERED BY DRESSING. IV SITE NOTED ON L AC, 20 GAUGE. NS INFUSING AT 10 ML/HR. FALL PRECAUTIONS IN PLACE. CALL LIGHT WITHIN REACH, BED LOW. WILL CONTINUE TO MONITOR.
[2018-10-07] MEDS ORDERED: HYDRAGUARD CREAM TP PRN (07:21)
[2018-10-07 07:48] LABS: PHOSPHORUS 3.8 mg/dL (2.5-4.9)
--- NOTE | 2018-10-07 07:52 | NUR ---
ENDORSED PT IN STABLE CONDITION TO AM NURSE.
[2018-10-07 07:56] LABS: WHITE BLOOD COUNT (AUTO) 30.1 K/uL (4.8-10.8)
[2018-10-07 07:57] LABS: LYMPHOCYTES % (MANUAL) 1 % (20-46); MONOCYTES % (MANUAL) 1 % (5-12)
[2018-10-07 08:00] VITALS: BP 100/55
[2018-10-07] MEDS: CARVEDILOL 3.125 MG TAB PO SCH ×2 (08:00→16:09)
[2018-10-07] MEDS: amLODIPine 5 MG TAB PO SCH (09:00)
[2018-10-07] MEDS: HYDROCHLOROTHIAZIDE 25 MG TAB PO SCH (09:00)
[2018-10-07] MEDS: BENAZEPRIL 20 MG TAB PO SCH (09:00)
--- NOTE | 2018-10-07 09:22 | NUR ---
PATIENT HAS BEEN SCREENED AND CATEGORIZED HIGH NUTRITION RISK. PATIENT WILL BE SEEN WITHIN 1-2 DAYS OF ADMISSION. 10/05/18-10/07/[address]
[2018-10-07 09:23] LABS: ANION GAP 13.3 (8-16); CARBON DIOXIDE 29.9 mmol/L (21-32); CHLORIDE 110 mmol/L (98-107); CREATININE 0.6 mg/dL (0.6-1.3); GLUCOSE 130 mg/dL (74-106); POTASSIUM 4.2 mmol/L (3.5-5.1); SODIUM SERUM 149 mmol/L (136-145); UREA NITROGEN, BLOOD 33 mg/dL (7-18)
[2018-10-07] MEDS: FUROSEMIDE 20 MG/2 ML VIAL IVP SCH (09:59)
[2018-10-07] MEDS: LACTOBACILLUS RHAMNOSUS GG 1 EACH CAP PO SCH (10:01)
--- NOTE | 2018-10-07 13:30 | NUR ---
PT REFUSED BREATHING TX AT THIS TIME USING RESTROOM SHE WILL CALL IF SHE NEEDS ONE NO SIGNS OF DISTRESS NOTED
[2018-10-07] MEDS: CLINDAMYCIN PHOS 600MG/D5W PM 50 ML IV SCH ×2 (13:51→20:57)
--- NOTE | 2018-10-07 13:53 | NUR ---
WOUND CARE CONSULT NOTE: SKIN ASSESSMENT DONE THIS AM WITH THIS 88 Y/O FEMALE PT. WITH PRIMARY DX OF SOB, PAST MEDICAL HX OF HTN, COPD AND CHF, PT SKIN IS DRY AND FLAKY. BLE NO HAIR GROWTH, CAPILLARY REFILLED <3 SEC. PLAN OF CARE DISCUSSED WITH PT AND PRIMARY RN. PT. VERBALIZING UNDERSTANDING. INTEGUMENTARY -ECCHYMOSIS TO MID CHEST, SKIN INTACT -LEFT EAR DRY SCAB, TEJAS-WOUND SKIN INTACT -SACRALCOCCYX BLANCHABLE REDNESS 2X2 CM,SKIN INTACT -LEFT BUTTOCK ABRASION 1X1, WOUND BED IS CLEAN,RED AND MOIST, NO ODOR RECOMMENDATIONS: -KEEP SKIN DRY AND CLEAN AT ALL TIMES -CLEANSE LEFT BUTTOCK WITH NS, PAT DRY APPLY SILVASORB GEL AND COVER WITH DRY DRESSING QD AND PRN IF SOILING. -APPLY SKIN PREP TO SACRALCOCCYX BIDWC AND PRN IF SOILING -OFFLOAD BILATERAL HEELS BY PLACING PILLOWS UNDER CALVES UNLESS OTHERWISE CONTRAINDICATED -PRESSURE REDISTRIBUTION SURFACE THERAPY -TURN AND REPOSITION Q2H, OFFLOAD SACRALCOCCYX, R/L BUTTOCKS BY TURNING RIGHT AND LEFT -MONITOR SKIN CONDITION EACH TIME PT IS REPOSITIONS -CONTINUE TO FOLLOW RD RECOMMENDATIONS ALL ABOVE RECOMMENDATIONS DISCUSSED WITH PRIMARY RN WILL FOLLOW UP PT Q7-10 DAYS. PLEASE CONTACT WOUND CARE NURSE FOR ANY QUESTION AND CHANGE OF WOUND CONDITION. Addendum: 10/07/18 at 1406 by Nikole Greenberg RN (Grace) CLARIFICATION:NO PRESSURE INJURY TO SACRALCOCCYX AREA. SACRALCOCCYX BLANCHABLE REDNESS, SKIN INTACT. Addendum: 10/07/18 at 1414 by Nikole Greenberg RN (Grace) AMEND: RIGHT BUTTOCK ABRASION , LEFT BUTTOCK SKIN INTACT.
--- NOTE | 2018-10-07 14:44 | NUR ---
PT HAD A THORACENTESIS OF THE R SIDE CHEST, PERFORMED BY DR. SHARMA. 700 ML OF YELLOW FLUID OUT. PT TOLERATED WELL, NO S/S OF ACUTE DISTRESS OR SOB. WILL CONTINUE TO MONITOR.
--- NOTE | 2018-10-07 15:21 | NUR ---
10/07/18 RD INITIAL ASSESSMENT COMPLETED PLEASE REFER TO NUTRITION ASSESSMENT UNDER CARE ACTIVITY FOR ESTIMATED NUTRITIONAL NEEDS. 1. CONTINUE CARDIAC DIET TOLERATED 2. DIEITIAN RECOMMENDS ENSURE MAX 3X/DAY 3. DIETITIAN PROVIDED CARDIAC NUTRITIONAL EDUCATION 4. RD TO FOLLOW-UP 2-3 DAYS, HIGH RISK DENZEL GALVEZ RD
[2018-10-07 16:00] VITALS: BP 99/57
--- NOTE | 2018-10-07 17:42 | NUR ---
PT IS ALERT AND AWAKE IN BED, NO S/S OF ACUTE DISTRESS, NO SOB, NO C/O PAIN AT THIS TIME. PT STILL HAVING HEMATURIA. CALL LIGHT WITHIN REACH. WILL CONTINUE TO MONITOR.
--- NOTE | 2018-10-07 19:20 | NUR ---
PT REPORT GIVEN TO ONSITE CASE MANAGER NURSE. PT ENDORSED IN STABLE CONDITION.
--- NOTE | 2018-10-07 19:21 | NUR ---
RECEIVED PT AWAKE,ALERT AND ORIENTED X 4. TELE . PT ABLE TO AMBULATE W/ ASSISTANCE TO BEDSIDE COMMODE. HEMATURIA NOTED. WITH IVF ON L AC, INFUSING WELL AND PATENT NO COMPLAINTS OF PAIN AT THIS TIME. NO RESPIRATORY DISTRESS ON 02 2 LPM ROUTINE VIA NC. PT ON LOW BED POSITION. POC REVIEWED. CALL LIGHTS WITHIN REACH.
--- NOTE | 2018-10-07 20:00 | NUR ---
PT DISCUSSED WITH MIXED LIVESTOCK FARMER AT BEDSIDE ISSUES FOR HEALTHCARE.
[2018-10-07] MEDS: MIRTAZAPINE 15 MG TAB PO SCH (20:58)
[2018-10-08] VITALS: BP 119/54
--- NOTE | 2018-10-08 | NUR ---
PT SLEEPING IN BED, NO DISTRESS NOTED. FALL RISK PROTOCOL INITIATED.
--- NOTE | 2018-10-08 04:00 | NUR ---
PT STILL SLEEPING BUT AROUSABLE, NO COMPLAINTS AT THIS TIME. WILL CONTINUE TO MONITOR
[2018-10-08] MEDS: NACL 0.9% 1,000 ML IV SCH (04:28)
[2018-10-08] MEDS: methylPREDNISolone SS 40 MG/ML VIAL IVP SCH ×3 (05:42→21:16)
[2018-10-08] MEDS: CLINDAMYCIN PHOS 600MG/D5W PM 50 ML IV SCH ×3 (05:43→21:16)
[2018-10-08] MEDS: ALBUTEROL SULFATE/IPRATROPIU 3 ML SOL IH SCH ×3 (06:19→19:04)
[2018-10-08 06:25] LABS: T4 (THYROXINE) 6.6 ug/dL (4.5-12.0)
[2018-10-08 06:43] LABS: HEMATOCRIT 36.8 % (36-48); HEMOGLOBIN 11.3 g/dL (12.0-16.0); MEAN CORPUSCULAR HEMOGLOBIN 25 pg (27-31); MEAN CORPUSCULAR HGB CONC 31 g/dL (33-37); MEAN CORPUSCULAR VOLUME 81.5 fL (80-94); PLATELET COUNT (AUTO) 340 K/uL (140-450); RED BLOOD CELL COUNT(AUTO) 4.52 MIL/uL (4.20-5.40); RED CELL DISTRIBUTION WIDTH 16.5 % (11.6-13.7)
--- NOTE | 2018-10-08 07:02 | NUR ---
PT STABLE, NO COMPLAINTS OF PAIN NOR RESPIRATORY DISTRESS. WILL ENDORSE TO NEXT SHIFT
--- NOTE | 2018-10-08 07:24 | NUR ---
RECEIVED BEDSIDE REPORT FROM GETTER WELDER NURSE. PT IS AOX4. AMBULATORY WITH ASSIST. USES BEDSIDE COMMODE. FLUID RESTRICTIONS 1.5L/DAY. DENIES PAIN AND DISCOMFORT AT THIS TIME. NO S/S RESPIRATORY DISTRESS. DENIES SOB, RESPIRATIONS EVEN AND UNLABORED. SATURATING AT 90% ON 2 L O2 NC. DRY SCAB ON L EAR. WOUND ON R BUTTOCK, DRESSING C/D/I. SACROCOCCYX REDNESS. IV SITE L AC, 20 GAUGE PATENT AND ASYMPTOMATIC, INFUSING IVF AT 10 ML/HR. FALL PRECAUTIONS IN PLACE. CALL LIGHT WITHIN REACH, BED LOW. WILL CONTINUE TO MONITOR. Addendum: 10/08/18 at 0755 by Silvina Springer Meng, RN PER GETTER WELDER RN, PT HAS STILL BEEN HAVING HEMATURIA.
[2018-10-08 07:31] LABS: ANION GAP 7.4 (8-16); CARBON DIOXIDE 34.7 mmol/L (21-32); CHLORIDE 106 mmol/L (98-107); CREATININE 0.7 mg/dL (0.6-1.3); GLUCOSE 152 mg/dL (74-106); POTASSIUM 4.1 mmol/L (3.5-5.1); SODIUM SERUM 144 mmol/L (136-145); UREA NITROGEN, BLOOD 31 mg/dL (7-18)
[2018-10-08 08:00] VITALS: BP 110/55
--- NOTE | 2018-10-08 08:31 | NUR ---
PER RADIOLOGY, THE CT MACHINE WILL BE DOWN FOR MAINTAINENCE UNTIL 11AM OR 12PM TODAY. PT WILL NOT GO FOR ORDERED CT CHEST W/O CONTRAST UNTIL AFTER MAINTAINENCE COMPLETE.
[2018-10-08 08:33] LABS: WHITE BLOOD COUNT (AUTO) 30.6 K/uL (4.8-10.8)
[2018-10-08 08:34] LABS: LYMPHOCYTES % (MANUAL) 2 % (20-46); MONOCYTES % (MANUAL) 1 % (5-12)
[2018-10-08 08:35] LABS: PHOSPHORUS 3.6 mg/dL (2.5-4.9)
[2018-10-08] MEDS: LACTOBACILLUS RHAMNOSUS GG 1 EACH CAP PO SCH (08:47)
[2018-10-08] MEDS: CARVEDILOL 3.125 MG TAB PO SCH ×2 (08:47→16:39)
[2018-10-08] MEDS: FUROSEMIDE 20 MG/2 ML VIAL IVP SCH (08:47)
[2018-10-08] MEDS: HYDROCHLOROTHIAZIDE 25 MG TAB PO SCH (08:48)
[2018-10-08] MEDS: BENAZEPRIL 20 MG TAB PO SCH (08:57)
[2018-10-08] MEDS: amLODIPine 5 MG TAB PO SCH (08:58)
--- NOTE | 2018-10-08 10:29 | NUR ---
HELPED PATIENT CALL HER FROM [facility]OSPITAL PHONE PER PATIENT REQUEST.
--- NOTE | 2018-10-08 11:07 | NUR ---
100ML OF URINE EMPTIED FROM BEDSIDE COMMODE. BLOOD SEEN IN URINE. DR. LOW IS AWARE THAT BLOOD IS STILL PRESENT IN URINE.
--- NOTE | 2018-10-08 11:08 | NUR ---
HAIR SPECIALIST HERE TO TAKE PATIENT FOR CT CHEST W/O CONTRAST VIA WHEELCHAIR.
[2018-10-08 12:00] VITALS: BP 126/52
--- NOTE | 2018-10-08 12:03 | NUR ---
SCHEDULED 1300 MEDICATIONS ADMINISTERED. PATIENT COMPLAINING OF 6/10 RIGHT SIDED LOWER BACK PAIN. ADMINISTERED NORCO PER MD ORDERS. WILL CONTINUE TO MONITOR.
--- NOTE | 2018-10-08 13:11 | NUR ---
ASSISTING PATIENT WITH LUNCH. PATIENT REPORTS THAT PAIN IS "A LOT BETTER" NOW. REPORTING TOLERABLE 2/10 RT SIDED LOWER BACK PAIN. ADMINISTERED NORPoken AT 1204.
--- NOTE | 2018-10-08 13:24 | NUR ---
PT REPORTING THAT IV SITE LEAKING. RE-SECURED IV SITE AND FLUSHED WITH NS. NO IVF SEEN LEAKING FROM SITE. IV PATENT AND ASYMPTOMATIC. PT DENIES PAIN AT IV SITE. ASKED PT TO REPORT IF ANY MORE LEAKING NOTICED. PT VERBALIZED COMPLETE UNDERSTANDING. WILL CONTINUE TO MONITOR.
--- NOTE | 2018-10-08 14:33 | NUR ---
DAUGHTER TIMMY CALLED AND WANTS TO TALK TO THE PATIENT. INFORMED DAUGHTER THAT PT IS SLEEPING NOW. WROTE DOWN DAUGHTER'S NUMBER AND WILL CALL DAUGHTER FOR PATIENT WHEN AWAKE.
--- NOTE | 2018-10-08 15:29 | NUR ---
SPOKE WITH ERAN FROM [facility], . I TOLD HER THE PATIENT MAY NEED HOME O2. I FAXED HER THE ABG'S TO [phone]. NO DISCHARGE DATE YET.
[2018-10-08 16:00] VITALS: BP 129/75
--- NOTE | 2018-10-08 17:21 | NUR ---
PT RESTING IN BED, WATCHING TV. DENIES PAIN AND DISCOMFORT AT THIS TIME. HELPED PATIENT CALL DAUGHTER.
--- NOTE | 2018-10-08 19:28 | NUR ---
ENDORSED POC TO COLORECTAL SURGEON RN AT BEDSIDE. PT IN STABLE CONDITION.
--- NOTE | 2018-10-08 19:29 | NUR ---
REPORT RECEIVED FROM AM NURSE AT BEDSIDE. PT IN STABLE CONDITION. AAOX4. INTRODUCED SELF TO PT. BOARD UPDATED. NO COMPLAINTS OF PAIN. NO SOB. IV SITE L AC 20G RUNNING NS TKO@10ML/HR PATENT AND INTACT. SKIN WARM, DRY, AND NOT INTACT DUE TO A WOUND ON THE RIGHT BUTTOCKS. PT ON 2L O2 VIA NC. BED LOCKED IN LOW POSITION. CALL WHITE WITHIN REACH. SAFETY PRECAUTIONS IN PLACE.
[2018-10-08 20:00] VITALS: BP 124/44
[2018-10-08] MEDS: MIRTAZAPINE 15 MG TAB PO SCH (21:16)
--- NOTE | 2018-10-08 21:16 | NUR ---
MIRTAZAPINE GIVEN PO. CLINDAMYCIN HUNG AND RUNNING. SOLUMEDROL GIVEN IVP. HEPARIN GIVEN SUBQ. PT TOLERATED WELL.
--- NOTE | 2018-10-08 21:30 | NUR ---
IV SITE LEAKING. NEW IV INSERTED. L FA 22G. FLUSHES WELL. 1 ATTEMPT. OTHER IV L AC20G D/C. CANNULA INTACT.
--- NOTE | 2018-10-08 23:40 | NUR ---
PT SLEEPING COMFORTABLY BUT AROUSEABLE. VS STABLE. NO S/S OF DISTRESS NOTED. WILL CONTINUE TO MONITOR.
[2018-10-09] VITALS: BP 90/45
[2018-10-09] MEDS: NACL 0.9% 1,000 ML IV SCH (00:20)
--- NOTE | 2018-10-09 02:30 | NUR ---
PT SLEEPING COMFORTABLY. NO S/S OF DISTRESS NOTED. RESPIRATIONS EVEN, UNLABORED, AND WNL. FLACC 0. NO SOB. AFEBRILE. WILL CONTINUE TO MONITOR.
[2018-10-09 04:00] VITALS: BP 133/61
[2018-10-09] MEDS: CLINDAMYCIN PHOS 600MG/D5W PM 50 ML IV SCH ×3 (04:02→20:16)
[2018-10-09] MEDS: methylPREDNISolone SS 40 MG/ML VIAL IVP SCH ×2 (04:02→13:09)
--- NOTE | 2018-10-09 04:02 | NUR ---
CLINDAMYCIN GIVEN IVPB. SOLUMEDROL GIVEN IVP. PT TOLERATED WELL.
--- NOTE | 2018-10-09 05:07 | NUR ---
JONAS CARR AND RUNNING. PT TOLERATING WELL.
[2018-10-09 06:56] LABS: HEMOGLOBIN 11.1 g/dL (12.0-16.0)
[2018-10-09 07:12] LABS: HEMATOCRIT 35.7 % (36-48); MEAN CORPUSCULAR HEMOGLOBIN 25 pg (27-31); MEAN CORPUSCULAR HGB CONC 31 g/dL (33-37); PLATELET COUNT (AUTO) 288 K/uL (140-450); RED BLOOD CELL COUNT(AUTO) 4.41 MIL/uL (4.20-5.40); RED CELL DISTRIBUTION WIDTH 16.6 % (11.6-13.7)
--- NOTE | 2018-10-09 07:15 | NUR ---
REPORT GIVEN TO AM NURSE AT BEDSIDE. PT IN STABLE CONDITION.
--- NOTE | 2018-10-09 07:20 | NUR ---
RECEIVED PT FROM SOUNDSCRIBER MECHANIC NURSEMATTHIEU, PT IS AWAKE AND LYING ON THE BED WITH SIDE RAILS UP AND CALL LIGHT WITHIN REACH, SAFETY AND FALL PRECAUTION ENFORCED, BED IN LOW POSITION, BEDSIDE COMMODE IN PLACE. PT HAS AN IV LINE ON THE LEFT FA G. 22 WITH NS AT 10ML/HR, INFUSING, INTACT. PT DENIES PAIN AT THIS TIME , NO SIGN OF DISTRESS NOTED AND WILL CONTINUE TO MONITOR.
[2018-10-09] MEDS: ALBUTEROL SULFATE/IPRATROPIU 3 ML SOL IH SCH ×3 (07:23→19:25)
--- NOTE | 2018-10-09 07:23 | NUR ---
SATURATION 82% ON ROOM AIR POST HH THERAPY PLACED ON SUPPLEMENTAL OXYGEN AT 2 LPM VIA NC PATIENT C/O OF NASAL DRYNESS ESCROW CLERK TO ADD HUMIDIFIER
[2018-10-09 07:25] LABS: WHITE BLOOD COUNT (AUTO) 36.8 K/uL (4.8-10.8)
--- NOTE | 2018-10-09 07:25 | NUR ---
MONIKA FROM LAB CALLED AND REPORTED THE PT'S CRITICAL WBC VALUE OF 36.8, ACKNOWLEDGED AND WILL INFORM THE MD.
--- NOTE | 2018-10-09 07:40 | NUR ---
INFORMED DR. العلي OF THE PT'S WBC CRITICAL VALUE RESULT OF 36.8, MD ACKNOWLEDGED AND WILL PLACE AN ORDER.
[2018-10-09 07:43] LABS: LYMPHOCYTES % (MANUAL) 2 % (20-46); MONOCYTES % (MANUAL) 3 % (5-12)
[2018-10-09 08:00] VITALS: BP 156/54
[2018-10-09 08:10] LABS: CHLORIDE 102 mmol/L (98-107); POTASSIUM 3.3 mmol/L (3.5-5.1); SODIUM SERUM 143 mmol/L (136-145)
[2018-10-09 08:11] LABS: ANION GAP 9.7 (8-16); CARBON DIOXIDE 34.6 mmol/L (21-32); CREATININE 0.6 mg/dL (0.6-1.3); GLUCOSE 113 mg/dL (74-106); UREA NITROGEN, BLOOD 28 mg/dL (7-18)
[2018-10-09 08:23] LABS: MAGNESIUM 1.9 mg/dL (1.8-2.4); PHOSPHORUS 2.8 mg/dL (2.5-4.9)
--- NOTE | 2018-10-09 08:25 | NUR ---
NOTED AT 0723 ADDED HUMIDIFIER TO SUPPLEMENTAL OXYGEN
--- NOTE | 2018-10-09 09:20 | NUR ---
PT HAD A PT EVALUATION AND WAS NOTED TO HAVE AN O2 SATURATION OF 84% POST AMBULATORY PER JUNIOR OF PT. PT WAS HOOKED ON TO O2 2L NC. WILL CONTINUE TO MONITOR PT.
[2018-10-09] MEDS: LACTOBACILLUS RHAMNOSUS GG 1 EACH CAP PO SCH (09:37)
[2018-10-09] MEDS: HYDROCHLOROTHIAZIDE 25 MG TAB PO SCH (09:38)
[2018-10-09] MEDS: CARVEDILOL 3.125 MG TAB PO SCH ×2 (09:39→16:17)
[2018-10-09] MEDS: BENAZEPRIL 20 MG TAB PO SCH (09:39)
[2018-10-09] MEDS: amLODIPine 5 MG TAB PO SCH (09:39)
[2018-10-09] MEDS: FUROSEMIDE 20 MG/2 ML VIAL IVP SCH (09:40)
--- NOTE | 2018-10-09 09:56 | NUR ---
PT IS AWAKE AND SEATED ON THE BED AND VITAL SIGNS WERE CHECKED PRIOR TO MEDICATION ADMINISTRATION, PT TOLERATED THE MEDICATIONS AND WILL CONTINUE TO MONITOR.
--- NOTE | 2018-10-09 10:00 | NUR ---
INFORMED DR. العلي OF THE PT'S K LEVEL OF 3.3, ACKNOWLEDGED AND WILL PLACE AN ORDER.
--- NOTE | 2018-10-09 10:44 | NUR ---
OLE CARNEY SPOKE WITH [facility] OLE BARILLAS PH# [phone] AND INFORMED HER OF THE ORDER FOR SNF EVAL. OLE BARILLAS REQUESTED THE ORDER FOR SNF EVAL AND SNF PACKET BE FAXED TO HER. SHE ALSO SAID THAT SHE WILL BE THE ONE TO LOOK FOR AN ACCEPTING SNF AND WILL INFORM US FAXED ORDER FOR SNF AND SNF PACKET TO [facility] [phone] ATTN: OLE BARILLAS
[2018-10-09 12:00] VITALS: BP 115/50
--- NOTE | 2018-10-09 12:40 | NUR ---
ACKNOWLEDGED AN ORDER FROM DR. LEWIS OF TRANSFER FOR THE PT TO MED-SURG, HEART MONITOR WAS REMOVED AND HANDED TO BIRD MALCOLM.
--- NOTE | 2018-10-09 12:46 | NUR ---
CM NOTE RECEIVED CALL FROM DR. LOW SAYING THAT SHE SPOKE WITH THE PATIENT REGARDING SNF AND PATIENT WAS AGREEABLE. DR. LOW ALSO SAID THAT THE PLAN IS TO DISCHARGE THE PATIENT TO SNF BUT NOT TODAY, POSSIBLY TOMORROW OR THE DAY AFTER BECAUSE THEY HAVE REQUESTED FOR DR. SOLIMAN TO SEE PATIENT FOR CONSULT. [facility] MADE AWARE.
--- NOTE | 2018-10-09 13:50 | NUR ---
10/09/18 RD FOLLOW UP COMPLETED PLEASE REFER TO NUTRITION ASSESSMENT UNDER CARE ACTIVITY FOR ESTIMATED NUTRITIONAL NEEDS. 1. CONTINUE CARDIAC DIET TOLERATED 2. CONTINUE ENSURE MAX 3X A DAY TOLERATED 3. ENCOURAGE INCREASING PO INTAKE 4. RD TO FOLLOW-UP 2-3 DAYS, HIGH RISK DENZEL GALVEZ, RD
--- NOTE | 2018-10-09 14:03 | NUR ---
CM NOTE RECEIVED CALL FROM [facility] PH# [phone] WHO SAID THAT THEY AT [facility] HAVE SPOKEN WITH DR. LOPEZ AND DR. LOPEZ TOLD THEM THAT HE WILL COME SEE PATIENT AGAIN TODAY TO SEE IF SHE WILL BE STABLE FOR DISCHARGE TO SNF TODAY. PER [facility] CM ERAN, PATIENT CAN GO TO [facility] IN [place] PH# [phone] RM [address] Anthony LOPEZ AND THAT SHE WILL PUT PREMIER ON WILL CALL TODAY. DR. LOW AND CHARGE NURSE CARLOTTA FERNÁNDEZ
[2018-10-09 16:00] VITALS: BP 98/50
--- NOTE | 2018-10-09 16:00 | NUR ---
PT WAS REPOSITIONED AND DRESSING CHANGE WAS DONE ON THE SACRAL ULCER, [employer] DRESSING AND SILVASOR[employer] GEL APPLIED.
--- NOTE | 2018-10-09 16:17 | NUR ---
PT IS AWAKE AND VITAL SIGNS TAKEN, BP IS 98/50, PULSE AT 69 AND O2 SATURATION AT 95% AND RESPIRATION IS 18, COREG WAS HOLD OFF DUE TO PARAMETER. NO SIGN OF DISTRESS NOTED, WILL CONTINUE TO MONITOR PT.
--- NOTE | 2018-10-09 19:00 | NUR ---
ENDORSED PT TO DISTRIBUTOR OPERATOR NURSEMATTHIEU FOR CONTINUITY OF CARE, PT IS STABLE AT THIS TIME ON THE BEDSIDE COMMODE BEING ASSISTED BY NEGOTIATOR SALES.
--- NOTE | 2018-10-09 19:01 | NUR ---
REPORT RECEIVED FROM AM NURSE AT BEDSIDE. PT IN STABLE CONDITION. AAOX4. INTRODUCED SELF TO PT. BOARD UPDATED. NO COMPLAINTS OF PAIN. NO SOB. PT SATURATION >90%. IV SITE L FA 22G RUNNING NS@10ML/HR PATENT AND INTACT. SKIN WARM, DRY, AND NOT INTACT DUE TO AN OPEN WOUND ON THE LEFT BUTTOCKS. PATIENT HAD A PT TODAY. WAS ABLE TO WALK TO THE DOOR UNTIL SHE FELT DIZZY AND PT ENDED THERE. BED LOCKED IN LOW POSITION. CALL WHITE WITHIN REACH. SAFETY PRECAUTIONS IN PLACE.
[2018-10-09] MEDS: MIRTAZAPINE 15 MG TAB PO SCH (20:16)
--- NOTE | 2018-10-09 20:16 | NUR ---
CLINDAMYCIN HUNG AND RUNNING. MIRTAZAPINE GIVEN PO. HEPARIN GIVEN SUBQ. PT TOLERATED WELL.
--- NOTE | 2018-10-09 23:00 | NUR ---
PT SLEEPING COMFORTABLY IN BED. VS STABLE. NO S/S OF DISTRESS NOTED. WILL CONTINUE TO MONITOR.
[2018-10-10] VITALS: BP 97/42
--- NOTE | 2018-10-10 02:00 | NUR ---
PT SLEEPING COMFORTABLY IN BED. NO S/S OF DISTRESS NOTED. BREATHING EVEN, UNLABORED, AND WNL. WILL CONTINUE TO MONITOR.
[2018-10-10] MEDS: NACL 0.9% 1,000 ML IV SCH (03:59)
[2018-10-10] MEDS: CLINDAMYCIN PHOS 600MG/D5W PM 50 ML IV SCH (04:01)
--- NOTE | 2018-10-10 04:01 | NUR ---
CLINDAMYCIN HUNG AND RUNNING. PT TOLERATING WELL.
--- NOTE | 2018-10-10 06:00 | NUR ---
PT SLEEPING COMFORTABLY IN BED. NO S/S OF DISTRESS NOTED. WILL CONTINUE TO MONITOR.
[2018-10-10 06:24] LABS: HEMATOCRIT 31.9 % (36-48); HEMOGLOBIN 9.9 g/dL (12.0-16.0); MEAN CORPUSCULAR HEMOGLOBIN 25 pg (27-31); MEAN CORPUSCULAR HGB CONC 31 g/dL (33-37); MEAN CORPUSCULAR VOLUME 80.4 fL (80-94); PLATELET COUNT (AUTO) 273 K/uL (140-450); RED BLOOD CELL COUNT(AUTO) 3.97 MIL/uL (4.20-5.40); RED CELL DISTRIBUTION WIDTH 16.8 % (11.6-13.7)
[2018-10-10 06:49] LABS: ANION GAP 7.5 (8-16); CARBON DIOXIDE 33.9 mmol/L (21-32); CHLORIDE 103 mmol/L (98-107); CREATININE 0.5 mg/dL (0.6-1.3); GLUCOSE 84 mg/dL (74-106); POTASSIUM 3.4 mmol/L (3.5-5.1); SODIUM SERUM 141 mmol/L (136-145); UREA NITROGEN, BLOOD 25 mg/dL (7-18)
[2018-10-10 06:53] LABS: MAGNESIUM 1.8 mg/dL (1.8-2.4); PHOSPHORUS 2.4 mg/dL (2.5-4.9)
[2018-10-10] MEDS: ALBUTEROL SULFATE/IPRATROPIU 3 ML SOL IH SCH (07:08)
--- NOTE | 2018-10-10 07:15 | NUR ---
REPORT GIVEN TO AM NURSE AT BEDSIDE. PT IN STABLE CONDITION.
[2018-10-10 07:16] LABS: WHITE BLOOD COUNT (AUTO) 33.4 K/uL (4.8-10.8)
--- NOTE | 2018-10-10 07:16 | NUR ---
RECEIVED BEDSIDE REPORT FROM PM NURSE MATTHIEU. PT AWAKE, VERBALLY RESPONSIVE, RESPIRATIONS EVEN & UNLABORED. CALL LIGHT WITHIN REACH. ON O2 @ 2LPM VIA NC.
[2018-10-10 07:17] LABS: LYMPHOCYTES % (MANUAL) 2 % (20-46); MONOCYTES % (MANUAL) 3 % (5-12)
[2018-10-10 08:00] VITALS: BP 84/42
[2018-10-10] MEDS: CARVEDILOL 3.125 MG TAB PO SCH (08:00)
[2018-10-10] MEDS: LACTOBACILLUS RHAMNOSUS GG 1 EACH CAP PO SCH (08:22)
[2018-10-10] MEDS: BENAZEPRIL 20 MG TAB PO SCH (08:29)
[2018-10-10] MEDS: HYDROCHLOROTHIAZIDE 25 MG TAB PO SCH (08:29)
[2018-10-10] MEDS: amLODIPine 5 MG TAB PO SCH (08:29)
[2018-10-10] MEDS: FUROSEMIDE 20 MG/2 ML VIAL IVP SCH (08:29)
[2018-10-10] MEDS ORDERED: MIRT30TA PO (08:39)
[2018-10-10] MEDS ORDERED: AMOX500C25 PO (08:51)
[2018-10-10 09:00] VITALS: BP 92/38
--- NOTE | 2018-10-10 10:15 | NUR ---
SPOKE TO NONI CHARGE NURSE FROM [facility] ON THE PHONE. REPORT GIVEN RE: PT.
--- NOTE | 2018-10-10 10:30 | NUR ---
CM NOTE CHARGE NURSE CARLOTTA AND MARICRUZ RN AWARE THAT PATIENT IS GOING TO [facility]# [phone] RM [address] LOPEZ TODAY AND THAT [facility] HAS BEEN ARRANGED BY [facility] MIAH BARILLAS ON WILL CALL. CHARGE NURSE CARLOTTA SAID THAT SHE WILL CALL [facility] WHEN PATIENT IS READY FOR IT PROJECT LEAD.
--- NOTE | 2018-10-10 10:30 | NUR ---
SPOKE TO RUBEN DOHERTY (SPOUSE) ON THE PHONE & NOTIFIED OF PLAN FOR TRANSFER TO [facility] TODAY. VERBALIZED UNDERSTANDING.
--- NOTE | 2018-10-10 11:30 | NUR ---
VERBAL & WRITTEN DISCHARGE INSTRUCTIONS GIVEN TO PT. VERBALIZED UNDERSTANDING.
--- NOTE | 2018-10-10 12:00 | NUR ---
PT DISCHARGED AT THIS TIME VIA GURNEY, ACCOMPANIED BY 2 receptionist clerk. PT STABLE UPON DISCHARGE. NAME BAND REMOVED. ALL BELONGINGS WITH PT.
== END 2018-10-10 12:00 | DRG 871 ==
LOC: MED 02:37 → MTU 04:28
PROVIDERS: ADMIT General Practice; ATTEND General Practice
PROC: 0W993ZZ Drainage of Right Pleural Cavity, Percutaneous Approach (ICD-10-PCS; principal; 2018-10-07)
DX: A41.9 Sepsis, unspecified organism (principal); J18.9 Pneumonia, unspecified organism; E43 Unspecified severe protein-calorie malnutrition; I50.43 Acute on chronic combined systolic (congestive) and diastolic (congestive) heart failure; J96.01 Acute respiratory failure with hypoxia; J44.1 Chronic obstructive pulmonary disease with (acute) exacerbation; N39.0 Urinary tract infection, site not specified; Z68.1 Body mass index [BMI] 19.9 or less, adult; J44.0 Chronic obstructive pulmonary disease with (acute) lower respiratory infection; J90 Pleural effusion, not elsewhere classified; L89.151 Pressure ulcer of sacral region, stage 1; E86.0 Dehydration; I11.0 Hypertensive heart disease with heart failure; F32.9 Major depressive disorder, single episode, unspecified; Z66 Do not resuscitate; D49.2 Neoplasm of unspecified behavior of bone, soft tissue, and skin; Z51.5 Encounter for palliative care; Z79.82 Long term (current) use of aspirin; Z79.51 Long term (current) use of inhaled steroids; Z79.899 Other long term (current) drug therapy; Z82.5 Family history of asthma and other chronic lower respiratory diseases; Z87.891 Personal history of nicotine dependence
CPT/HCPCS: 36415; 36600; 71045; 71250; 76604; 76942; 80048; 80053; 80305; 81001; 82150; 82803; 83036; 83605; 83690; 83735; 83880; 84100; 84155; 84436; 84439; 84443; 84479; 84484; 85025; 85610; 85730; 87040; 87070; 87075; 87081; 87086; 87205; 93925; 93970; 94640; 96361; 96365; 97110; 97116; 97530; 99291; J0696; J1644; J1940; J1956; J2001; J2920; J2930; J3490; J7030; J7060; J7620; Q0092